=== PATIENT | female | born 1970 | race African-American/Black ===

== ENCOUNTER 2016-10-21 12:51 | Emergency (ER) | payer SELFPAY ==
[~2016-10-21] VITALS: Ht 177.8 cm; Wt 94.3 kg
[~2016-10-21 12:51] MED LIST: ALBU0.63 IH; ALBU5SOL2 IH; ALBU8.5H6 IH; ALPR0.254 PO; COMBIVENT IH; FLUT50DI IH; HYDR-2666 PO; HYDR-2762 PO; HYDR-971 PO; METO25TA9 PO; NITR100C62 PO; OXYC-323 PO; PARO10TA2 PO; SULF1TAB24 PO
[2016-10-21] MEDS ORDERED: IPRATRPIUM/ALBUTEROL 0.5/2.5MG 3 ML NEBU. NEB ONE (14:00)
[2016-10-21 14:30] VITALS: BP 114/69
[2016-10-21] MEDS ORDERED: IPRA4AER IH (14:43)
[2016-10-21] MEDS ORDERED: FLUT100D IH (14:43)
--- NOTE | 2016-10-21 14:44 | PHYS DOC ---
Past Medical History Past Medical History: Asthma, Bronchitis, Cancer, Diabetes-Type II, Hypertension, Kidney Stone, Other Additional Past Medical Histor: SVT, Cardioversion x 2,Cervical CA. Past Surgical History: Hysterectomy, Tubal ligation, Other Additional Past Surgical Histo: Kidney stent placed&removed,Cervical cyrotherapy Alcohol Use: Occasionally Drug Use: None Adult General Chief Complaint Chief Complaint: SHORTNESS OF BREATH HPI HPI Patient is a 46 year old female who presents to the ED with the complaint of shortness of air and chest tightness. The patient was seen 4 days ago at [facility] with these complaints as well as a fever and was diagnosed with "walking pneumonia" and was put on Levaquin which she has been taking as prescribed. However she also has run out of her Flovent and Combivent inhalers and believes that her symptoms today are because she has not had her inhalers in 2 weeks. She does have a history of asthma. She is a smoker. Patient moved here recently from [place] and ended up coming here without her inhalers. PCP none locally Review of Systems Review of Systems Constitutional: She has had fevers for several days Eyes: Denies change in visual acuity, redness, or eye pain [] HENT: Denies nasal congestion or sore throat [] Respiratory: Complains of cough and shortness of air as in history of present illness Cardiovascular: No cardiac sounding chest pain GI: Denies abdominal pain, nausea, vomiting, bloody stools or diarrhea [] : Denies dysuria or hematuria [] Musculoskeletal: Denies back pain or joint pain [] Integument: Denies rash or skin lesions [] Neurologic: Denies headache, focal weakness or sensory changes [] Current Medications Current Medications Current Medications Medications (Trade) Dose Ordered Sig/Laila Start Time Stop Time Status Last Admin Dose Admin Albuterol/ Ipratropium (Duoneb) 3 ml 1X ONCE 10/21/16 14:00 10/21/16 14:01 DC 10/21/16 14:14 3 ML Allergies Allergies Allergies Coded Allergies Type Severity Reaction Last Updated Verified No Known Drug Allergies 05/30/15 No Physical Exam Physical Exam Constitutional: Well developed, well nourished, no acute distress, non-toxic appearance. Alert, mentating normally, able to speak in full sentences without difficulty, ambulatory without dyspnea, pulse ox on room air 100%. HENT: Normocephalic, atraumatic, bilateral external ears normal, nose normal. [ ] Eyes: conjunctiva normal, no discharge. [] Neck: Normal range of motion, no stridor. [] Cardiovascular:Heart rate regular rhythm, no murmur , nontachycardia Lungs & Thorax: Bilateral breath sounds clear to auscultation with no wheezes, good bilateral equal breath sounds present, no prolonged expiratory phase Abdomen: Bowel sounds normal, soft, no tenderness, no masses, no pulsatile masses. [] Skin: Warm, dry, no erythema, no rash. [] Extremities: No tenderness, no cyanosis, no clubbing, ROM intact, no edema. [] Neurologic: Alert and oriented X 3, normal motor function, normal sensory function, no focal deficits noted. [] Current Patient Data Vital Signs Vital Signs Date Time Temp Pulse Resp B/P Pulse Ox O2 Delivery O2 Flow Rate FiO2 10/21/16 14:30 84 20 114/69 98 Room Air 10/21/16 13:00 98.5 98.5 EKG EKG [] Radiology/Procedures Radiology/Procedures [] Course & Med Decision Making Course & Med Decision Making Pertinent Labs and Imaging studies reviewed. (See chart for details) 46-year-old female with history of asthma who was diagnosed with pneumonia a few days ago at an area hospital and was started on an appropriate antibiotic, continues to have symptoms although today her vital signs and pulse ox are normal and lungs are clear. She does state a history of asthma so I offered her a DuoNeb which she stated made her feel better and I gave her prescriptions for the chronic inhalers that she is supposed to be taking and urged her to follow up with primary care. [] Dragon Disclaimer Dragon Disclaimer This electronic medical record was generated, in whole or in part, using a voice recognition dictation system. Departure Departure Impression: Primary Impression: Asthma exacerbation Disposition: 01 HOME, SELF-CARE Condition: IMPROVED Referrals: Elvin FRIEDMAN MD (PCP) Patient Instructions: Asthma, Adult, [id number] Scripts Fluticasone Propionate (Flovent 100MCG Diskus)100 Mcg Disk.w.dev1 Puff IH BID # 1 INHALER Ref 5 Prov:FIONA SANDOVAL MD 10/21/16 Ipratropium/Albuterol Sulfate (Combivent Respimat Inhal)4 Gm Aer.w.adap2 Inh IH QID #1 INHALER Prov:FIONA SANDOVAL MD 10/21/16 FIONA SANDOVAL MD Oct 21, 2016 14:43
== END 2016-10-21 14:50 | disposition home or self-care (01) ==
LOC: ER 12:51
DX: J45.901 Unspecified asthma with (acute) exacerbation (principal); I10 Essential (primary) hypertension; E11.9 Type 2 diabetes mellitus without complications; Z87.442 Personal history of urinary calculi; Z85.89 Personal history of malignant neoplasm of other organs and systems; Z98.51 Tubal ligation status
CPT/HCPCS: 94250; 94640; 99283; J7620

== ENCOUNTER 2016-10-25 15:44 | Emergency (ER) | payer OTHER ==
[~2016-10-25] VITALS: Ht 177.8 cm; Wt 95.3 kg
[~2016-10-25 15:44] MED LIST changes: +FLUT100D IH; +IPRA4AER IH; -PARO10TA2 PO; +PARO10TA3 PO
[2016-10-25] MEDS ORDERED: IPRATRPIUM/ALBUTEROL 0.5/2.5MG 3 ML NEBU. NEB ONE (16:15)
[2016-10-25 16:16] LABS: BASO # 0.1 x10^3/uL (0.0-0.2); BASO % 1 % (0-3); EOS % 3 % (0-3); HEMATOCRIT 40.5 % (36.0-47.0); HEMOGLOBIN 13.4 g/dL (12.0-15.5); LYMPH # 4.5 x10^3/uL (1.0-4.8); LYMPH % 44 % (24-48); MEAN CORPUSCULAR HEMOGLOBIN 30 pg (25-35); MEAN CORPUSCULAR HGB CONC 33 g/dL (31-37); MEAN CORPUSCULAR VOLUME 92 fL (79-100); MONO % 5 % (0-9); NEUT % 46 % (31-73); PLATELET COUNT 254 x10^3/uL (140-400); RED CELL DISTRIBUTION WIDTH 14.1 % (11.5-14.5); WHITE BLOOD COUNT 10.3 x10^3/uL (4.0-11.0)
[2016-10-25 16:34] LABS: CALCIUM 9.2 mg/dL (8.5-10.1); CREATININE 0.8 mg/dL (0.6-1.0); GFR 93.9; POTASSIUM 3.9 mmol/L (3.5-5.1)
[2016-10-25 16:38] LABS: ALBUMIN 3.5 g/dL (3.4-5.0); DIRECT BILIRUBIN 0.1 mg/dL (0.0-0.2); TOTAL BILIRUBIN 0.4 mg/dL (0.2-1.0); TOTAL PROTEIN 7.3 g/dL (6.4-8.2)
--- NOTE | 2016-10-25 16:57 | EKG ---
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
--- NOTE | 2016-10-25 17:08 | RAD ---
Examination: Single portable chest History: History of chest pain Comparison: 12/15/2015 Findings: The cardiomediastinal silhouette grossly appears unremarkable. There is no acute infiltrate or visualized pneumothorax identified. Impression: No acute cardiopulmonary findings.
--- NOTE | 2016-10-25 17:11 | PHYS DOC ---
Past Medical History Past Medical History: Asthma, Bronchitis, Cancer, Diabetes-Type II, Hypertension, Kidney Stone, Other Additional Past Medical Histor: SVT, Cardioversion x 2,Cervical CA. Past Surgical History: Hysterectomy, Tubal ligation, Other Additional Past Surgical Histo: Kidney stent placed&removed,Cervical cyrotherapy Alcohol Use: Occasionally Drug Use: None Adult General Chief Complaint Chief Complaint: SHORTNESS OF BREATH HPI HPI 46-year-old female presenting to the emergency department today with cough shortness of breath with exertion. This is been present for greater than one half weeks. She reports being seen at [facility] treated for a pneumonia with a fluoroquinolone. She was also seen here given DuoNeb therapy and subsequently discharged home. She reports shortness of breath that is worse with walking. She reports a dry cough without much mucus production. She has a history of asthma. She has been using her albuterol intermittently which has helped mildly. She denies any leg swelling bilaterally. She denies weight gain. She denies having fevers. She finished her antibiotic course as prescribed. She also reports mild swelling of her right knee. Review of systems is negative for chest pain abdominal pain nausea vomiting diaphoresis. All other review of systems is negative unless otherwise noted in history of present illness. Review of Systems Review of Systems SEE ABOVE. Current Medications Current Medications Current Medications Medications (Trade) Dose Ordered Sig/Laila Start Time Stop Time Status Last Admin Dose Admin Albuterol/ Ipratropium (Duoneb) 3 ml 1X ONCE 10/25/16 16:15 10/25/16 16:16 DC 10/25/16 16:24 3 ML Info (Do NOT chart on this entry -- for MONITORING) 1 each PRN DAILY PRN 10/25/16 17:45 10/27/16 17:44 Iohexol (Omnipaque 300 Mg/ml) 75 ml 1X ONCE 10/25/16 18:00 10/25/16 18:01 DC 10/25/16 18:10 75 ML Allergies Allergies Allergies Coded Allergies Type Severity Reaction Last Updated Verified No Known Drug Allergies 05/30/15 No Physical Exam Physical Exam Constitutional: Well developed, well nourished, no acute distress, non-toxic appearance. HENT: Normocephalic, atraumatic, bilateral external ears normal, oropharynx moist, no oral exudates, nose normal. [] Eyes: PERRLA, EOMI, conjunctiva normal, no discharge. Neck: Normal range of motion, no tenderness, supple, no stridor. No evidence of JVD. Cardiovascular:Heart rate regular rhythm, no murmur Lungs & Thorax: Bilateral breath sounds clear to auscultation . No wheezing on auscultation. Expiratory phase is normal. No crackles present. Abdomen: Bowel sounds normal, soft, no tenderness, no masses, no pulsatile masses. Skin: Warm, dry, no erythema, no rash. [] Back: No tenderness, no CVA tenderness. Extremities: No tenderness, no cyanosis, no clubbing, ROM intact, no edema present. Legs are symmetric without unilateral swelling. Nontender venous system. No clinical evidence of DVT present. Neurologic: Alert and oriented X 3, normal motor function, normal sensory function, no focal deficits noted. Psychologic: Affect normal, judgement normal, mood normal. Current Patient Data Vital Signs Vital Signs Date Time Temp Pulse Resp B/P Pulse Ox O2 Delivery O2 Flow Rate FiO2 10/25/16 16:24 99 Room Air 10/25/16 16:01 99.3 94 16 113/74 99.3 Lab Values Laboratory Tests Test 10/25/16 16:00 White Blood Count 10.3x10^3/uL (4.0-11.0) Red Blood Count 4.40x10^6/uL (3.50-5.40) Hemoglobin 13.4g/dL (12.0-15.5) Hematocrit 40.5% (36.0-47.0) Mean Corpuscular Volume 92fL (79-100) Mean Corpuscular Hemoglobin 30pg (25-35) Mean Corpuscular Hemoglobin Concent 33g/dL (31-37) Red Cell Distribution Width 14.1% (11.5-14.5) Platelet Count 254x10^3/uL (140-400) Neutrophils (%) (Auto) 46% (31-73) Lymphocytes (%) (Auto) 44% (24-48) Monocytes (%) (Auto) 5% (0-9) Eosinophils (%) (Auto) 3% (0-3) Basophils (%) (Auto) 1% (0-3) Neutrophils # (Auto) 4.8x10^3uL (1.8-7.7) Lymphocytes # (Auto) 4.5x10^3/uL (1.0-4.8) Monocytes # (Auto) 0.5x10^3/uL (0.0-1.1) Eosinophils # (Auto) 0.3x10^3/uL (0.0-0.7) Basophils # (Auto) 0.1x10^3/uL (0.0-0.2) Sodium Level 146mmol/L (136-145) H Potassium Level 3.9mmol/L (3.5-5.1) Chloride Level 107mmol/L (98-107) Carbon Dioxide Level 30mmol/L (21-32) Anion Gap 9 (6-14) Blood Urea Nitrogen 10mg/dL (7-20) Creatinine 0.8mg/dL (0.6-1.0) Estimated GFR (Cockcroft-Gault) 93.9 Glucose Level 112mg/dL (70-99) H Calcium Level 9.2mg/dL (8.5-10.1) Total Bilirubin 0.4mg/dL (0.2-1.0) Direct Bilirubin 0.1mg/dL (0.0-0.2) Aspartate Amino Transferase (AST) 11U/L (15-37) L Alanine Aminotransferase (ALT) 14U/L (14-59) Alkaline Phosphatase 115U/L (46-116) Troponin I Quantitative < 0.017ng/mL (0.000-0.055) QI-Uiu-O-Type Natriuretic Peptide 10pg/mL (0-124) Total Protein 7.3g/dL (6.4-8.2) Albumin 3.5g/dL (3.4-5.0) Lipase 155U/L (73-393) Laboratory Tests 10/25/16 16:00 Laboratory Tests 10/25/16 16:00 EKG EKG EKG shows sinus rhythm with regular rate. Normal intervals. Normal axis. ST segments are congruent. Not suggestive of ACS. Reviewed by myself. Radiology/Procedures Radiology/Procedures Chest x-ray reviewed by myself shows no obvious infiltrate or pneumothorax present. No obvious acute cardiopulmonary process present. Course & Med Decision Making Course & Med Decision Making Pertinent Labs and Imaging studies reviewed. (See chart for details) [] 46-year-old female presenting to the emergency department with shortness of breath. Vital signs afebrile normal heart rate. Unremarkable. Physical exam showed normal lung sounds. Patient was not dyspneic. She was able to walk in our emergency department without any difficulty. No evidence of cyanosis present. EKG not suggestive of ischemia. Chest x-ray unremarkable. Blood work normal CBC. Chemistry panel unremarkable. Troponin negative. Patient was given a DuoNeb therapy. CT angiography negative for pulmonary embolism. The patient was subsequent discharged home to follow up with her primary care physician in 2 days if her symptoms do not improve. I also recommended she be referred to our pulmonologists within the next week. Dragon Disclaimer Dragon Disclaimer This electronic medical record was generated, in whole or in part, using a voice recognition dictation system. Departure Departure Impression: Primary Impression: Shortness of breath Disposition: 01 HOME, SELF-CARE Condition: STABLE Referrals: Elvin FRIEDMAN MD (PCP) JOSE ALEJANDRO HUITRON MD cardiology SHERRY GARCIA MD pulmonology Patient Instructions: Shortness of Breath Additional Instructions: Thank you for allowing us to participate in your care today. Followup with your primary care physician in 3 days if your symptoms do not improve. If you do not have a primary care provider you can ask for a list of our primary care providers. I recommend you follow up with our application helper Dr. Garcia within 7 days. Return to the emergency department you have any new or concerning findings. This should be evaluated by the primary care physician and any necessary consulting services for continued management within a few days after discharge. Return to emergency room if you have any new or concerning symptoms including but not limited to fever, chills, nausea, vomiting, intractable pain, any new rashes, chest pain, shortness of air, uncontrolled bleeding, difficulty breathing, and/or vision loss. You may have been prescribed medication that can change in your level of thinking and ability to operate machinery. These medications include hydrocodone and Ativan. Also, Benadryl has been known to do this as well. Be sure to check with your pharmacist and ask if the medications you've prescribed can affect your level of consciousness. I recommend not operating heavy machinery or driving while on medication such as these. Scripts Albuterol Sulfate (Proair Hfa Inhaler)8.5 Gm Hfa.aer.ad1 Puff INH PRN Q6HRS PRN SHORTNESS OF BREATH #1 INHALER Prov:GREGG CODY MD 10/25/16 GREGG CODY MD Oct 25, 2016 17:11
[2016-10-25] MEDS ORDERED: CONTRAST GIVEN MC PRN (17:45)
[2016-10-25 18:00] VITALS: BP 109/66
[2016-10-25] MEDS ORDERED: IOHEXOL 300 MG/ML 75 ML VIAL IV ONE (18:00)
--- NOTE | 2016-10-25 18:26 | RAD ---
CTA chest: Indication: Exertional dyspnea. Axial imaging through the chest was performed after the administration of intravenous contrast and utilizing the CT angiography protocol. Multiplanar, 3D and MIP reformations were also performed. Evaluation of the pulmonary arterial system is without evidence of thromboembolism. No filling defects are detected. The thoracic aorta is normal caliber. No dissection is seen. No pericardial or pleural fluid is identified. No pulmonary infiltrates, nodules or masses are detected. The upper abdomen is unremarkable. Impression: Unremarkable CT angiogram of the chest. Electronically signed by: Marco Harley MD (Oct 25, 2016 18:25:45)
[2016-10-25] MEDS ORDERED: PROAIR HFA8.5 GM INH (18:31)
== END 2016-10-25 18:40 | disposition home or self-care (01) ==
LOC: ER 15:44
DX: R06.02 Shortness of breath (principal); R05 Cough; J45.909 Unspecified asthma, uncomplicated; E11.9 Type 2 diabetes mellitus without complications; I10 Essential (primary) hypertension; I47.1 Supraventricular tachycardia; Z79.899 Other long term (current) drug therapy
CPT/HCPCS: 36415; 71010; 71275; 80048; 80076; 83690; 83880; 84484; 85027; 93005; 94640; 99285; J7620; Q9967

== ENCOUNTER → 2016-12-30 | Outpatient (CLI) | payer OTHER ==
[~2016-12-30] MED LIST changes: +PROAIR HFA8.5 GM INH
--- NOTE | 2016-12-30 08:57 | RAD ---
Indication: Left elbow pain, fall. Time of exam 0851 hours. 3 views of the left elbow were obtained. The alignment is normal. The joint spaces are well-maintained. No fracture, dislocation or effusion is identified. Impression: No acute bony abnormality is detected.
== END | disposition home or self-care (01) ==
LOC: RAD 08:37
PROVIDERS: ATTEND Family Medicine
DX: M25.522 Pain in left elbow (principal)
CPT/HCPCS: 73080

== ENCOUNTER 2016-12-31 12:00 | Emergency (ER) | payer OTHER ==
[~2016-12-31] VITALS: Ht 175.3 cm; Wt 98.0 kg
[2016-12-31 12:05] VITALS: BP 141/67
--- NOTE | 2016-12-31 12:43 | RAD ---
Indication: Trauma, fall with right knee pain. Time of exam 12:30 PM 4 views of the right knee were obtained. The alignment is normal. The joint spaces are well maintained. The articular surfaces are smooth. No fracture, dislocation or effusion is identified. Impression: No acute bony abnormality is detected.
[2016-12-31] MEDS ORDERED: HYDROcodone/APAP 5/325MG 1 TAB TABLET PO ONE (13:00)
[2016-12-31] MEDS ORDERED: HYDR-971 PO (13:01)
--- NOTE | 2016-12-31 13:01 | PHYS DOC ---
Past Medical History Past Medical History: Asthma, Diabetes-Type II, Hypertension Additional Past Medical Histor: SVT Past Surgical History: Hysterectomy, Tubal ligation Additional Past Surgical Histo: kideny stent placed and removed, cryotherapy Alcohol Use: Occasionally Drug Use: None Adult General Chief Complaint Chief Complaint: KNEE INJURY HPI HPI Patient is a 46 year old female with history of asthma, hypertension, diabetes type 2, who presents today with mild anterior right knee pain and swelling that began on December 20, 2016 after she fell. Patient denies any loss of consciousness when she fell. She states she followed up her primary care doctor Dr. Etienne who removed some fluid from the knee and gave her an injection in the knee for pain. Patient states this has not alleviated her pain. She states she still has pain especially when she has to bend her knee. Patient denies any loss of consciousness when she fell. PCP Dr. Etienne Review of Systems Review of Systems Constitutional: Denies fever or chills [] Eyes: Denies change in visual acuity, redness, or eye pain [] Musculoskeletal: Right knee pain Integument: Denies rash or skin lesions [] Neurologic: Denies headache, focal weakness or sensory changes [] Endocrine: Denies polyuria or polydipsia [] Current Medications Current Medications Current Medications Medications (Trade) Dose Ordered Sig/Laila Start Time Stop Time Status Last Admin Dose Admin Acetaminophen/ Hydrocodone Bitart (Lortab 5/325) 2 tab 1X ONCE 12/31/16 13:00 12/31/16 13:01 12/31/16 12:26 2 TAB Allergies Allergies Allergies Coded Allergies Type Severity Reaction Last Updated Verified No Known Drug Allergies 05/30/15 No Physical Exam Physical Exam Constitutional: Well developed, well nourished, no acute distress, non-toxic appearance. [] HENT: Normocephalic, atraumatic, bilateral external ears normal, oropharynx moist, no oral exudates, nose normal. [] Eyes: PERRLA, EOMI, conjunctiva normal, no discharge. [] Skin: Warm, dry, no erythema, no rash. [] Back: No tenderness, no CVA tenderness. [] Extremities: Right anterior knee with mild amount of soft tissue swelling. No obvious deformity. Tenderness diffusely on the anterior aspect of the right knee. Limited range of motion to the right knee especially flexion due to pain. Negative Dashawn sign. +2 right pedal pulse. Cap refill less than 2 seconds the right lower extremity. Sensation intact to the right lower extremity. Neurologic: Alert and oriented X 3, normal motor function, normal sensory function, no focal deficits noted. [] Psychologic: Affect normal, judgement normal, mood normal. [] Current Patient Data Vital Signs Vital Signs Date Time Temp Pulse Resp B/P (MAP) Pulse Ox O2 Delivery O2 Flow Rate FiO2 12/31/16 12:26 16 Room Air 12/31/16 12:05 98.8 82 141/67 (91) 100 98.8 EKG EKG [] Radiology/Procedures Radiology/Procedures []PROCEDURE: KNEE RIGHT 4V Indication: Trauma, fall with right knee pain. Time of exam 12:30 PM 4 views of the right knee were obtained. The alignment is normal. The joint spaces are well maintained. The articular surfaces are smooth. No fracture, dislocation or effusion is identified. Impression: No acute bony abnormality is detected. DICTATED and SIGNED BY: MARYELLEN STEWART MD DATE: 12/31/16 1240 CC: ADONAY FRIEDMAN MD; CHIHCI ASCENCIO APRN; NON,STAFF ~ Course & Med Decision Making Course & Med Decision Making Pertinent Labs and Imaging studies reviewed. (See chart for details) Patient is in the ED with right knee pain that began on December 03, 2016 after she fell. Right knee x-rays interpreted by radiologist are negative for any acute findings. Immobilizer applied to the right knee by the instrument room technician, neurovascular exam done by me is normal, cap refill less than 2 seconds. Ice elevation encouraged. Provided orthopedic doctor for follow-up in one week. Dragon Disclaimer Dragon Disclaimer This electronic medical record was generated, in whole or in part, using a voice recognition dictation system. Departure Departure Impression: Primary Impression: Right knee sprain Additional Impression: Fall from standing Disposition: 01 HOME, SELF-CARE Condition: STABLE Referrals: ADONAY FRIEDMAN MD (PCP) AMADEO CRUZ MD Follow-up in one week Patient Instructions: Fall Prevention and Home Safety, Knee Sprain Additional Instructions: You were seen for ongoing right knee pain. Your x-rays of the knee are negative for any acute findings. Wear the immobilizer as tolerated. Ice and elevate the extremity. Take the prescribed pain medicines including ibuprofen as needed for pain. Follow-up with the provided orthopedic doctor in one week if pain continues. Scripts Hydrocodone/Apap 5-325 (NORCO 5-325 TABLET) 1 Each Tablet 1-2 TAB PO Q4-6HRS, #20 TAB Prov: CHICHI ASCENCIO APRN 12/31/16 Problem Qualifiers Primary Impression: Right knee sprain Encounter type: initial encounter Involved ligament of knee: unspecified ligament Qualified Codes: S83.91XA - Sprain of unspecified site of right knee , initial encounter Additional Impression: Fall from standing Encounter type: initial encounter Qualified Codes: W19.XXXA - Unspecified fall, initial encounter CHICHI ASCENCIO APRN December 31, 2016 13:01
== END 2016-12-31 13:16 | disposition home or self-care (01) ==
LOC: ER 12:00
DX: S83.91XA Sprain of unspecified site of right knee, initial encounter (principal); J45.909 Unspecified asthma, uncomplicated; E11.9 Type 2 diabetes mellitus without complications; I10 Essential (primary) hypertension; W19.XXXA Unspecified fall, initial encounter; Y93.89 Activity, other specified; Y92.89 Other specified places as the place of occurrence of the external cause; Y99.8 Other external cause status
CPT/HCPCS: 29505; 73564; 99284-25

== ENCOUNTER 2017-02-16 20:20 | Emergency (ER) | payer OTHER ==
[~2017-02-16] VITALS: Ht 175.3 cm; Wt 95.3 kg
[~2017-02-16 20:20] MED LIST changes: -HYDR-2666 PO; +HYDR-2758 PO
[2017-02-16 20:30] VITALS: BP 115/74
[2017-02-16 21:25] LABS: BASO # 0.1 x10^3/uL (0.0-0.2); BASO % 1 % (0-3); EOS % 2 % (0-3); HEMATOCRIT 40.6 % (36.0-47.0); HEMOGLOBIN 13.4 g/dL (12.0-15.5); LYMPH # 2.5 x10^3/uL (1.0-4.8); LYMPH % 22 % (24-48); MEAN CORPUSCULAR HEMOGLOBIN 31 pg (25-35); MEAN CORPUSCULAR HGB CONC 33 g/dL (31-37); MEAN CORPUSCULAR VOLUME 92 fL (79-100); MONO % 6 % (0-9); NEUT % 70 % (31-73); PLATELET COUNT 207 x10^3/uL (140-400); RED BLOOD COUNT 4.39 x10^6/uL (3.50-5.40); RED CELL DISTRIBUTION WIDTH 14.8 % (11.5-14.5); WHITE BLOOD COUNT 11.4 x10^3/uL (4.0-11.0)
[2017-02-16] MEDS ORDERED: IPRATRPIUM/ALBUTEROL 0.5/2.5MG 3 ML NEBU. NEB ONE (21:30)
[2017-02-16 21:34] LABS: CALCIUM 8.3 mg/dL (8.5-10.1); CREATININE 0.9 mg/dL (0.6-1.0); GFR 81.9; POTASSIUM 3.7 mmol/L (3.5-5.1)
--- NOTE | 2017-02-16 21:43 | PHYS DOC ---
Past Medical History Past Medical History: Asthma, Diabetes-Type II, Hypertension, Other Additional Past Medical Histor: SVT Past Surgical History: Hysterectomy, Tubal ligation, Other Additional Past Surgical Histo: kideny stent placed & removed, cryotherapy, CARDIOVERSION Additional Information: 03 PPD Alcohol Use: Occasionally Drug Use: None Adult General Chief Complaint Chief Complaint: COUGH HPI HPI 46-year-old female presenting to the emergency department with cough for the past week. Her cough is nonproductive. She has mild pain with coughing in her ribs. She also reports being short of breath intermittently over the past few days. She had been prescribed antibiotics and steroids which she reports only minimally relieved her symptoms. No exacerbating factors. Nonradiating. Review of systems is negative for fevers chills nausea vomiting diaphoresis numbness weakness or tingling. All other review of systems is negative unless otherwise noted in history of present illness. ED course: 46-year-old female presenting to the emergency department today with upper respiratory tract infection symptoms. X-ray and blood work obtained. Chest x-ray reviewed by myself shows no obvious infiltrate or pneumothorax present. No obvious acute cardiopulmonary process present. EKG shows sinus rhythm with regular rate. Normal intervals. Normal axis. ST segments are congruent. Not suggestive of ACS. Reviewed by myself. Afebrile normal heart rate. Satting well on room air. Pertinent physical exam findings showed clear to auscultation bilaterally. No wheezing present. The patient was given a nebulizer treatment in the emergency department for symptomatic treatment. Leukocytosis was likely secondary to the patient being on prednisone previously. She was subsequently discharged home to follow-up with her primary care physician. The patient was then discharged home in stable condition to follow up with their primary care physician over the next 2-3 days. They were to return if their symptoms worsened or if they were concerned for any reason. [id number] discharge instructions and return precautions were given. Patient' s questions were answered to their satisfaction. Patient is comfortable plan. Review of Systems Review of Systems SEE ABOVE. Current Medications Current Medications Current Medications Medications (Trade) Dose Ordered Sig/Laila Start Time Stop Time Status Last Admin Dose Admin Albuterol/ Ipratropium (Duoneb) 3 ml 1X ONCE 02/16/17 21:30 02/16/17 21:31 DC 02/16/17 21:19 3 ML Allergies Allergies Allergies Coded Allergies Type Severity Reaction Last Updated Verified No Known Drug Allergies 05/30/15 No Physical Exam Physical Exam Constitutional: Well developed, well nourished, no acute distress, non-toxic appearance. [] HENT: Normocephalic, atraumatic, bilateral external ears normal, oropharynx moist, no oral exudates, nose normal. [] Eyes: PERRLA, EOMI, conjunctiva normal, no discharge. [] Neck: Normal range of motion, no tenderness, supple, no stridor. [] Cardiovascular:Heart rate regular rhythm, no murmur [] Lungs & Thorax: Bilateral breath sounds clear to auscultation [] Abdomen: Bowel sounds normal, soft, no tenderness, no masses, no pulsatile masses. [] Skin: Warm, dry, no erythema, no rash. [] Back: No tenderness, no CVA tenderness. [] Extremities: No tenderness, no cyanosis, no clubbing, ROM intact, no edema. [] Neurologic: Alert and oriented X 3, normal motor function, normal sensory function, no focal deficits noted. [] Psychologic: Affect normal, judgement normal, mood normal. [] Current Patient Data Vital Signs Vital Signs Date Time Temp Pulse Resp B/P (MAP) Pulse Ox O2 Delivery O2 Flow Rate FiO2 02/16/17 21:23 100 Room Air 02/16/17 20:30 98.5 95 16 115/74 (88) 98.5 Lab Values Laboratory Tests Test 02/16/17 21:19 White Blood Count 11.4 x10^3/uL (4.0-11.0) H Red Blood Count 4.39 x10^6/uL (3.50-5.40) Hemoglobin 13.4 g/dL (12.0-15.5) Hematocrit 40.6 % (36.0-47.0) Mean Corpuscular Volume 92 fL (79-100) Mean Corpuscular Hemoglobin 31 pg (25-35) Mean Corpuscular Hemoglobin Concent 33 g/dL (31-37) Red Cell Distribution Width 14.8 % (11.5-14.5) H Platelet Count 207 x10^3/uL (140-400) Neutrophils (%) (Auto) 70 % (31-73) Lymphocytes (%) (Auto) 22 % (24-48) L Monocytes (%) (Auto) 6 % (0-9) Eosinophils (%) (Auto) 2 % (0-3) Basophils (%) (Auto) 1 % (0-3) Neutrophils # (Auto) 8.0 x10^3uL (1.8-7.7) H Lymphocytes # (Auto) 2.5 x10^3/uL (1.0-4.8) Monocytes # (Auto) 0.6 x10^3/uL (0.0-1.1) Eosinophils # (Auto) 0.2 x10^3/uL (0.0-0.7) Basophils # (Auto) 0.1 x10^3/uL (0.0-0.2) Sodium Level 143 mmol/L (136-145) Potassium Level 3.7 mmol/L (3.5-5.1) Chloride Level 109 mmol/L (98-107) H Carbon Dioxide Level 27 mmol/L (21-32) Anion Gap 7 (6-14) Blood Urea Nitrogen 9 mg/dL (7-20) Creatinine 0.9 mg/dL (0.6-1.0) Estimated GFR (Cockcroft-Gault) 81.9 Glucose Level 155 mg/dL (70-99) H Calcium Level 8.3 mg/dL (8.5-10.1) L Troponin I Quantitative < 0.017 ng/mL (0.000-0.055) Laboratory Tests 02/16/17 21:19 Laboratory Tests 02/16/17 21:19 EKG EKG [] Radiology/Procedures Radiology/Procedures [] Course & Med Decision Making Course & Med Decision Making Pertinent Labs and Imaging studies reviewed. (See chart for details) [] Dragon Disclaimer Dragon Disclaimer This electronic medical record was generated, in whole or in part, using a voice recognition dictation system. Departure Departure Impression: Primary Impression: URI (upper respiratory infection) Additional Impression: Cough Disposition: 01 HOME, SELF-CARE Condition: STABLE Referrals: ADONAY FRIEDMAN MD (PCP) Patient Instructions: Cough, Adult Additional Instructions: Thank you for allowing us to participate in your care today. 1. Try to stay hydrated and drink lots of water 2. Take your Tessalon Perles and inhaler as needed to help with your cough. Followup with your primary care physician in 3 days if your symptoms do not improve. Call your Primary Doctor tomorrow and inform them of your visit today. If you do not have a primary care provider you can ask for a list of our primary care providers. Return to the emergency department you have any new or concerning findings. This should be evaluated by the primary care physician and any necessary consulting services for continued management within a few days after discharge. Return to emergency room if you have any new or concerning symptoms including but not limited to fever, chills, nausea, vomiting, intractable pain, any new rashes, chest pain, shortness of air, uncontrolled bleeding, difficulty breathing, and/or vision loss. Problem Qualifiers GREGG CODY MD Feb 16, 2017 21:43
--- NOTE | 2017-02-17 06:35 | EKG ---
[facility] [address] [place] [address] Test Date: 2017-02-16 Test Time: 20:43:30 Pat Name: CALIXTO DANIEL Department: Room: Gender: F Cbx Operator: : 1970 Requested By: GREGG CODY Order Number: [id number] Reading MD: Measurements Intervals [place] Rate: 77 P: 40 OK: 140 QRS: 62 QRSD: 80 T: 27 QT: 364 QTc: 414 Interpretive Statements SINUS RHYTHM NORMAL ECG RI6.01 No previous ECG available for comparison
--- NOTE | 2017-02-17 07:15 | RAD ---
Indication: Cough and shortness of breath. Time of exam 2113 hours. Correlation is made with prior study from 10/25/2016. FINDINGS: The heart size is normal. The lungs are clear. No pleural effusion or pneumothorax is identified. The pulmonary vascularity is normal. IMPRESSION: No acute abnormality detected.
== END 2017-02-16 22:16 | disposition home or self-care (01) ==
LOC: ER 20:20
DX: J06.9 Acute upper respiratory infection, unspecified (principal); J45.909 Unspecified asthma, uncomplicated; I10 Essential (primary) hypertension; E11.9 Type 2 diabetes mellitus without complications; F17.200 Nicotine dependence, unspecified, uncomplicated; Z90.710 Acquired absence of both cervix and uterus; Z98.51 Tubal ligation status
CPT/HCPCS: 36415; 71010; 80048; 84484; 85027; 93005; 94250; 94640; 99285; J7620

== ENCOUNTER 2017-06-08 09:17 | Emergency (ER) | payer OTHER ==
[~2017-06-08] VITALS: Ht 175.3 cm; Wt 95.3 kg
[~2017-06-08 09:17] MED LIST changes: +METO-239 PO; -METO25TA9 PO
--- NOTE | 2017-06-08 10:01 | PHYS DOC ---
Past Medical History Past Medical History: Asthma, Diabetes-Type II, Hypertension, Kidney Stone, Other Additional Past Medical Histor: SVT Past Surgical History: Hysterectomy, Tubal ligation, Other Additional Past Surgical Histo: kideny stent placed & removed, cryotherapy, CARDIOVERSION Additional Information: 0.5 PPD Alcohol Use: Occasionally Drug Use: None Adult General Chief Complaint Chief Complaint: COUGH HPI HPI Impression is a pleasant 46-year-old -[place] female with multiple medical problems who presents with a one-week history of progressive cough URI- like symptoms that she cannot seem to get over. She is attempted use over-the- counter medications to include Tamiflu and guaifenesin without much improvement. She has had subjective fevers and chills with a productive cough runny nose and congestion. She denies any myalgias, chest pain but also has some tightness across her chest with coughing. Patient denies any wheezing, history of asthma or COPD. 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 Denies any antibiotic use or travel outside the country. Patient denies any abdominal pain, nausea vomiting or diarrhea. Review of Systems Review of Systems Constitutional: Subjective fever or chills [] Eyes: Denies change in visual acuity, redness, or eye pain [] HENT: Denies nasal congestion or sore throat [] Respiratory: Present nonproductive sometimes productive cough or shortness of breath [] Cardiovascular: No additional information not addressed in HPI [] GI: Denies abdominal pain, nausea, vomiting, bloody stools or diarrhea [] : Denies dysuria or hematuria [] Musculoskeletal: Denies back pain or joint pain [] Integument: Denies rash or skin lesions [] Neurologic: Denies headache, focal weakness or sensory changes [] Endocrine: Denies polyuria or polydipsia [] Allergies Allergies Allergies Coded Allergies Type Severity Reaction Last Updated Verified No Known Drug Allergies 05/30/15 No Physical Exam Physical Exam Of the vital signs recorded on the chart within normal limits. Constitutional: Well developed, well nourished, no acute distress, non-toxic appearance. [] HENT: Normocephalic, atraumatic, bilateral external ears normal, oropharynx moist, no oral exudates, nose rhinorrhea[] Neck: Normal range of motion, no tenderness, supple, no stridor. [] Cardiovascular:Heart rate regular rhythm, no murmur [] Lungs & Thorax: Bilateral breath sounds clear to auscultation slight crackle at the right base [] Skin: Warm, dry, no erythema, no rash. [] Neurologic: Alert and oriented X 3, normal motor function, normal sensory function, no focal deficits noted. [] Psychologic: Affect normal, judgement normal, mood normal. [] Current Patient Data Vital Signs Vital Signs Date Time Temp Pulse Resp B/P (MAP) Pulse Ox O2 Delivery O2 Flow Rate FiO2 06/08/17 09:23 99.2 79 24 114/24 (54) 99 Room Air 99.2 EKG EKG [] Radiology/Procedures Radiology/Procedures [] Course & Med Decision Making Course & Med Decision Making Pertinent Labs and Imaging studies reviewed. (See chart for details) She presents with URI-like symptoms for the last week. sHe has subjective fevers and chills and a productive cough with sick contacts at work. Hers exam is relatively unremarkable today I will provide her course of azithromycin because the work and she is in there is smoking. [] Dragon Disclaimer Dragon Disclaimer This electronic medical record was generated, in whole or in part, using a voice recognition dictation system. Departure Departure Impression: Primary Impression: Bronchitis Disposition: 01 HOME, SELF-CARE Condition: IMPROVED Referrals: Elvin FRIEDMAN MD (PCP) Patient Instructions: Acute Bronchitis Additional Instructions: My discharge plan Follow up: In addition patient is asked to followup with their primary doctor, within a week for followup examination and to address patient's ongoing medical conditions. Patient is advised that in the Emergency Department primary complaints are addressed and only in light of known signs and symptoms. Patient should return immediately to the emergency department if new signs and symptoms develop or patient's condition worsens in any way. At time of discharge patient was in stable condition and had verbalized understanding of the discharge instructions. Scripts Hydrocodone Bit/Acetaminophen (HYDROCODONE-APAP 5-325 ) 1 Each Tablet 1-2 TAB PO PRN Q6HRS Y for PAIN for 5 Days, #10 TAB 0 Refills Prov: SHABBIR SARMIENTO MD 06/08/17 Guaifenesin/Dextromethorphan (MUCINEX DM ER 600-30 MG TABLET) 1 Each Tab.er.12h 1 TAB PO PRN Q12HRS, #20 TAB Prov: SHABBIR SARMIENTO MD 06/08/17 Azithromycin (AZITHROMYCIN TABLET) 250 Mg Tablet 250 MG PO DAILY Y for infection for 5 Days, #6 TAB 0 Refills Please take 2 tablets on day 1 then 1 tablet days 2 through 5. Prov: SHABBIR SARMIENTO MD 06/08/17 SHABBIR SARMIENTO MD Jun 08, 2017 10:01
[2017-06-08 10:13] VITALS: BP 136/83
[2017-06-08] MEDS ORDERED: HYDR-2758 PO (10:15)
[2017-06-08] MEDS ORDERED: GUAI-108 PO (10:15)
[2017-06-08] MEDS ORDERED: AZIT250T6 PO (10:15)
== END 2017-06-08 10:33 | disposition home or self-care (01) ==
LOC: ER 09:17
DX: J40 Bronchitis, not specified as acute or chronic (principal); J45.909 Unspecified asthma, uncomplicated; E11.9 Type 2 diabetes mellitus without complications; I10 Essential (primary) hypertension; F17.200 Nicotine dependence, unspecified, uncomplicated; Z87.442 Personal history of urinary calculi; Z96.0 Presence of urogenital implants
CPT/HCPCS: 99283

== ENCOUNTER → 2017-09-14 | Outpatient (CLI) | payer OTHER | END | disposition home or self-care (01) | LOC: KCIC 13:41 | DX: J18.9 Pneumonia, unspecified organism (principal) | CPT/HCPCS: 71046 ==

== ENCOUNTER 2018-07-21 08:03 | Emergency (ER) | payer OTHER ==
[~2018-07-21] VITALS: Ht 175.3 cm; Wt 92.1 kg
[~2018-07-21 08:03] MED LIST changes: +AZIT250T6 PO; +GUAI-108 PO; -HYDR-2758 PO; +HYDR-2761 PO; -HYDR-2762 PO; +HYDR-2765 PO; +HYDR-3164 PO; -HYDR-971 PO; -OXYC-323 PO; +OXYC1TAB15 PO
--- NOTE | 2018-07-21 08:41 | PHYS DOC ---
Past Medical History Past Medical History: Asthma, Diabetes-Type II, Hypertension, Kidney Stone, Other Additional Past Medical Histor: SVT Past Surgical History: Hysterectomy, Tubal ligation, Other Additional Past Surgical Histo: kideny stent placed & removed, cryotherapy, CARDIOVERSION Alcohol Use: Occasionally Drug Use: None Adult General Chief Complaint Chief Complaint: COUGH HPI HPI 48-year-old female presents to ER via POV for complaints of 4 day history of productive cough and generalized fatigue. Patient reports she has had chest pain which worsens during coughing episodes which radiates into her back. Patient reports she feels like she has had a fever as she has had chills and sweats but has not checked her temperature at home. Patient reports she has had productive cough with green and yellow phlegm. Patient denies swelling in extremities, abdominal pain, or N/V/D. she reports she has had decreased appetite and fluid intake. She reports she's had decreased urination denying any dysuria. States history of asthma and is a daily smoker. Patient states she has been using her nebulizer however symptoms have still gradually worsened over the past few days. Patient reports she has been using [id number] TheraFlu denies any medications today. Review of Systems Review of Systems Constitutional: Reports chills and sweats- has not checked temp. at home. Reports generalized fatigue Eyes: Denies change in visual acuity, redness, or eye pain [] HENT: Denies nasal congestion or sore throat [] Respiratory: Reports productive cough with green and yellow phlegm. Reports exertional shortness of air Cardiovascular: Reports mid chest pain which worsens with coughing episodes GI: Denies abdominal pain, nausea, vomiting, bloody stools or diarrhea [] : Denies dysuria or hematuria. Reports decreased urination Musculoskeletal: Denies joint pain. Reports mid back pain. Denies calf pain or swelling Integument: Denies rash, swelling or skin lesions [] Neurologic: Denies headache, focal weakness or sensory changes [] All other systems were reviewed and found to be within normal limits, except as documented in this note. Current Medications Current Medications Current Medications Medications (Trade) Dose Ordered Sig/Laila Start Time Stop Time Status Last Admin Dose Admin Albuterol/ Ipratropium (Duoneb) 3 ml 1X ONCE 07/21/18 08:45 11/29/18 08:46 DC 07/21/18 08:53 3 ML Fentanyl Citrate (Fentanyl 2ml Vial) 50 mcg 1X ONCE 07/21/18 08:45 07/21/18 08:46 DC 07/21/18 09:11 50 MCG Methylprednisolone Sodium Succinate (SOLU-Medrol 125MG VIAL) 125 mg 1X ONCE 07/21/18 08:45 07/21/18 08:46 DC 07/21/18 09:10 125 MG Sodium Chloride 1,000 ml @ 1,000 mls/hr 1X ONCE 07/21/18 08:45 07/21/18 09:44 DC 07/21/18 09:10 1,000 MLS/HR Allergies Allergies Allergies Coded Allergies Type Severity Reaction Last Updated Verified No Known Drug Allergies 05/30/15 No Physical Exam Physical Exam Constitutional: Well developed, well nourished, no acute distress, non-toxic appearance. Fatigued appearance. Clear speech no muffled voice HENT: Normocephalic, atraumatic, bilateral ears normal, mucous membranes pink and dry, no oral exudates, nose normal. [] Eyes: Pupils equal, conjunctiva normal, no discharge. [] Neck: Normal range of motion, no tenderness, supple, no stridor. No gross adenopathy Cardiovascular: Heart rate regular rhythm, no murmur [] Lungs & Thorax: Bilateral breath sounds clear to auscultation- diminished in bases. Resp. slightly labored during exam with prod. cough- yellow sputum Abdomen: Bowel sounds normal, soft-nondistended with no rigidity, no tenderness , no masses, no pulsatile masses. [] Skin: Warm, dry, no erythema, no rash. [] Back: No tenderness, no CVA tenderness. [] Extremities: No tenderness, no cyanosis, no clubbing, ROM intact, no edema. [] Neurologic: Alert and oriented X 3, normal motor function, normal sensory function, no focal deficits noted. [] Psychologic: Affect normal, judgement normal, mood normal. [] Current Patient Data Vital Signs Vital Signs Date Time Temp Pulse Resp B/P (MAP) Pulse Ox O2 Delivery O2 Flow Rate FiO2 07/21/18 10:10 76 18 125/82 (96) 97 Room Air 07/21/18 08:30 99.0 99.0 Lab Values Laboratory Tests Test 07/21/18 08:45 07/21/18 09:00 07/21/18 09:40 White Blood Count 7.8 x10^3/uL (4.0-11.0) Red Blood Count 4.35 x10^6/uL (3.50-5.40) Hemoglobin 13.9 g/dL (12.0-15.5) Hematocrit 40.2 % (36.0-47.0) Mean Corpuscular Volume 92 fL (79-100) Mean Corpuscular Hemoglobin 32 pg (25-35) Mean Corpuscular Hemoglobin Concent 35 g/dL (31-37) Red Cell Distribution Width 13.9 % (11.5-14.5) Platelet Count 206 x10^3/uL (140-400) Neutrophils (%) (Auto) 60 % (31-73) Lymphocytes (%) (Auto) 30 % (24-48) Monocytes (%) (Auto) 6 % (0-9) Eosinophils (%) (Auto) 4 % (0-3) H Basophils (%) (Auto) 1 % (0-3) Neutrophils # (Auto) 4.7 x10^3uL (1.8-7.7) Lymphocytes # (Auto) 2.3 x10^3/uL (1.0-4.8) Monocytes # (Auto) 0.5 x10^3/uL (0.0-1.1) Eosinophils # (Auto) 0.3 x10^3/uL (0.0-0.7) Basophils # (Auto) 0.1 x10^3/uL (0.0-0.2) Sodium Level 142 mmol/L (136-145) Potassium Level 3.9 mmol/L (3.5-5.1) Chloride Level 105 mmol/L (98-107) Carbon Dioxide Level 26 mmol/L (21-32) Anion Gap 11 (6-14) Blood Urea Nitrogen 13 mg/dL (7-20) Creatinine 0.7 mg/dL (0.6-1.0) Estimated GFR (Cockcroft-Gault) 108.5 BUN/Creatinine Ratio 19 (6-20) Glucose Level 123 mg/dL (70-99) H Calcium Level 9.1 mg/dL (8.5-10.1) Magnesium Level 1.8 mg/dL (1.8-2.4) Total Bilirubin 0.3 mg/dL (0.2-1.0) Aspartate Amino Transferase (AST) 13 U/L (15-37) L Alanine Aminotransferase (ALT) 16 U/L (14-59) Alkaline Phosphatase 111 U/L (46-116) Troponin I Quantitative < 0.017 ng/mL (0.000-0.055) Total Protein 6.8 g/dL (6.4-8.2) Albumin 3.4 g/dL (3.4-5.0) Albumin/Globulin Ratio 1.0 (1.0-1.7) Lactic Acid Level 0.9 mmol/L (0.4-2.0) Urine Collection Type Unknown Urine Color Yellow Urine Clarity Clear Urine pH 6.5 Urine Specific [place] 1.025 Urine Protein Negative mg/dL (NEG-TRACE) Urine Glucose (UA) Negative mg/dL (NEG) Urine Ketones (Stick) Negative mg/dL (NEG) Urine Blood Negative (NEG) Urine Nitrite Negative (NEG) Urine Bilirubin Negative (NEG) Urine Urobilinogen Dipstick 0.2 mg/dL (0.2 mg/dL) Urine Leukocyte Esterase Negative (NEG) Urine RBC 1-2 /HPF (0-2) Urine WBC 1-4 /HPF (0-4) Urine Squamous Epithelial Cells Mod /LPF Urine Bacteria Few /HPF (0-FEW) Urine Mucus Marked /LPF Laboratory Tests 07/21/18 08:45 Laboratory Tests 07/21/18 08:45 EKG EKG EKG obtained 07/21/18 at [address] Terry Sinus rhythm Nonspecific ST-T wave abnorm. Rate 73 No STEMI Radiology/Procedures Radiology/Procedures PROCEDURE: CHEST PA & LATERAL Chest, 2 views, 07/21/2018: HISTORY: Cough Comparison is made to a study from 09/14/2017. The heart size is normal. No pulmonary infiltrate is seen. There is no evidence of pleural fluid. IMPRESSION: No acute cardiopulmonary abnormality is detected. Electronically signed by: Saul Adamson MD (07/21/2018 9:05 AM) [facility] DICTATED and SIGNED BY: SAUL ADAMSON MD DATE: 07/21/18 0904 Course & Med Decision Making Course & Med Decision Making Pertinent Labs and Imaging studies reviewed. (See chart for details) 0950: On reevaluation patient reports she has had improvement in her symptoms since arriving to ER and treatments received. Discussed test results with chest x-ray showing no acute findings; with no acute ST elevation or STEMI and troponin <0.017; WBCs 7.8 no bands; lactic acid NL at 0.9. Patient's heart rate is 74 with room air oxygen saturation at 99%. Patient has equal nonlabored respirations denying any chest pain or shortness of air at this time. Admission was offered for further care and monitoring. However patient and significant other both are preferring home discharge at this time as patient has had improved symptoms and tests are unremarkable. Patient states if symptoms worsen or with concerns she will return to ER or follow up with Dr. Florence her primary care physician. Pt will be given Rx for Ruth and 4 additional days of Prednisone with dose of Solu-Medrol given while in ER. Pt will be given Rx for Doxycycline and bronchitis/URI was discussed. Pt encouraged to increase fld intake. Discharge instructions were discussed w/education on s&s to return to ER for. Pt has inhaler/nebulizer at home. Smoking cessation was discussed. Pt agreeable with discharge plan as discussed. Dragon Disclaimer Dragon Disclaimer This electronic medical record was generated, in whole or in part, using a voice recognition dictation system. Departure Departure Impression: Primary Impression: Upper respiratory infection Additional Impression: Chest pain Disposition: 01 HOME, SELF-CARE Condition: STABLE Referrals: Elvin FLORENCE MD (PCP) Patient Instructions: Chest Wall Pain, Smoking Cessation, Upper Respiratory Infection, Adult Additional Instructions: Drink plenty of water. Avoid smoking. If symptoms worsen or with concerns follow- up with primary care physician or return to Emergency Department. Continue home nebulizer/inhaler as prescribed. Scripts Prednisone (PREDNISONE) 50 Mg Tablet 50 MG PO DAILY, #4 TAB 0 Refills start 07/22/18 Prov: ALFONSO RODGERS EXECUTIVE ADMINISTRATIVE ASSISTANT 07/21/18 Hydrocodone/Apap 5-325 (NORCO 5-325 TABLET) 1 Each Tablet 1 TAB PO PRN Q6HRS PRN for PAIN, #12 TAB 0 Refills Prov: ALFONSO RODGERS APRN 07/21/18 Doxycycline Monohydrate (DOXYCYCLINE MONOHYDRATE) 100 Mg Capsule 1 CAP PO BID, #14 CAP 0 Refills Prov: ALFONSO RODGERS APRN 07/21/18 Problem Qualifiers REFFITTALFONSO APRN Jul 21, 2018 08:41
[2018-07-21] MEDS ORDERED: methylPREDNISolone SOD SUCC PF 125 MG/2 ML VIAL. IV ONE (08:45)
[2018-07-21] MEDS ORDERED: IPRATRPIUM/ALBUTEROL 0.5/2.5MG 3 ML NEBU. NEB ONE (08:45)
[2018-07-21] MEDS ORDERED: IV NORMAL SALINE 1000ML BAG 1,000 ML IV ONE (08:45)
[2018-07-21] MEDS ORDERED: fentaNYL PF VIAL 100 MCG/2 ML VIAL IV ONE (08:45)
[2018-07-21 09:04] LABS: BASO # 0.1 x10^3/uL (0.0-0.2); BASO % 1 % (0-3); EOS # 0.3 x10^3/uL (0.0-0.7); EOS % 4 % (0-3); HEMATOCRIT 40.2 % (36.0-47.0); HEMOGLOBIN 13.9 g/dL (12.0-15.5); LYMPH # 2.3 x10^3/uL (1.0-4.8); LYMPH % 30 % (24-48); MEAN CORPUSCULAR HEMOGLOBIN 32 pg (25-35); MEAN CORPUSCULAR HGB CONC 35 g/dL (31-37); MEAN CORPUSCULAR VOLUME 92 fL (79-100); MONO # 0.5 x10^3/uL (0.0-1.1); MONO % 6 % (0-9); NEUT # 4.7 x10^3uL (1.8-7.7); NEUT % 60 % (31-73); PLATELET COUNT 206 x10^3/uL (140-400); RED BLOOD COUNT 4.35 x10^6/uL (3.50-5.40); RED CELL DISTRIBUTION WIDTH 13.9 % (11.5-14.5); WHITE BLOOD COUNT 7.8 x10^3/uL (4.0-11.0)
[2018-07-21 09:05] LABS: CALCIUM 9.1 mg/dL (8.5-10.1); CREATININE 0.7 mg/dL (0.6-1.0); GFR 108.5; POTASSIUM 3.9 mmol/L (3.5-5.1)
--- NOTE | 2018-07-21 09:06 | EKG ---
[facility] [address] [place] [address] Test Date: 2018-07-21 Test Time: 08:33:51 Pat Name: CALIXTO DANIEL Department: Room: Gender: F Head Rigger: : 1970 Requested By: ALFONSO RODGERS Order Number: [id number] Reading MD: Say Smith MD Measurements Intervals [place] Rate: 73 P: 43 AK: 160 QRS: 53 QRSD: 78 T: 26 QT: 368 QTc: 408 Interpretive Statements SINUS RHYTHM Electronically Signed On 07-25-2018 8:25:01 CONVEYOR MAINTENANCE MECHANIC by Say Smith MD
--- NOTE | 2018-07-21 09:08 | RAD ---
Chest, 2 views, 07/21/2018: HISTORY: Cough Comparison is made to a study from 09/14/2017. The heart size is normal. No pulmonary infiltrate is seen. There is no evidence of pleural fluid. IMPRESSION: No acute cardiopulmonary abnormality is detected. Electronically signed by: Saul Adamson MD (07/21/2018 9:05 AM) [facility]
[2018-07-21 09:13] LABS: ALBUMIN 3.4 g/dL (3.4-5.0); MAGNESIUM 1.8 mg/dL (1.8-2.4); TOTAL BILIRUBIN 0.3 mg/dL (0.2-1.0); TOTAL PROTEIN 6.8 g/dL (6.4-8.2)
[2018-07-21 09:59] LABS: BILIRUBIN,URINE NEGATIVE (NEG); CLARITY,URINE CLEAR; COLOR,URINE YELLOW; NITRITE,URINE NEGATIVE (NEG); PH,URINE 6.5; PROTEIN,URINE NEGATIVE (NEG-TRACE); UROBILINOGEN,URINE 0.2 mg/dL (0.2 mg/dL)
[2018-07-21] MEDS ORDERED: HYDR-3164 PO (09:59)
[2018-07-21] MEDS ORDERED: PRED50TA PO (09:59)
[2018-07-21] MEDS ORDERED: DOXY100C14 PO (09:59)
[2018-07-21 10:10] VITALS: BP 125/82
[2018-07-21 10:11] LABS: BACTERIA,URINE FEW /HPF (0-FEW); SQUAMOUS EPITHELIAL CELL,UR MOD /LPF
== END 2018-07-21 10:39 | disposition home or self-care (01) ==
LOC: ER 08:03
DX: J06.9 Acute upper respiratory infection, unspecified (principal); R07.89 Other chest pain; R30.0 Dysuria; J45.909 Unspecified asthma, uncomplicated; E11.9 Type 2 diabetes mellitus without complications; I10 Essential (primary) hypertension; F17.200 Nicotine dependence, unspecified, uncomplicated
CPT/HCPCS: 36415; 71046; 80053; 81001; 83605; 83735; 84484; 85025; 87040; 93005; 94640; 96374; 96375; 99284; J2930; J3010; J7030; J7620

== ENCOUNTER 2018-11-23 19:11 | Emergency (ER) | payer OTHER ==
[~2018-11-23] VITALS: Ht 175.3 cm; Wt 94.3 kg
[~2018-11-23 19:11] MED LIST changes: +ALBU2.5V8 INH; +DOXY100C14 PO; +PRED50TA PO; -PROAIR HFA8.5 GM INH
[2018-11-23 19:15] VITALS: BP 142/80
[2018-11-23] MEDS ORDERED: NAPROXEN 500 MG TABLET PO STA (19:24)
[2018-11-23] MEDS ORDERED: HYDROcodone/APAP 5/325MG 1 TAB TABLET PO ONE (19:30)
[2018-11-23] MEDS ORDERED: AMOX875T PO (19:32)
[2018-11-23] MEDS ORDERED: HYDR-3164 PO (19:32)
--- NOTE | 2018-11-23 19:32 | PHYS DOC ---
Past Medical History Past Medical History: Asthma, Diabetes-Type II, Hypertension, Kidney Stone, Other Additional Past Medical Histor: SVT Past Surgical History: Hysterectomy, Tubal ligation, Other Additional Past Surgical Histo: kideny stent placed & removed, cryotherapy, CARDIOVERSION Alcohol Use: Occasionally Drug Use: None Adult General Chief Complaint Chief Complaint: EARACHE/EAR PAIN [facility] HPI Patient is a 48 year old female with a history of diabetes, hypertension presents today complaining of left hip pain, sore throat, symptoms began 1 wk ago. She states she was seen by the PCP and was initially diagnosed with a sinus infection and put on a Z-Pedro. She states the medicine is not working. Denies any fever but states she has had chills. Review of Systems Review of Systems Constitutional: Reports chills, denies fever Eyes: Denies change in visual acuity, redness, or eye pain [] HENT: Reports sore throat. Reports left ear pain, nasal congestion Respiratory: Denies cough or shortness of breath [] Cardiovascular: No additional information not addressed in HPI [] GI: Denies abdominal pain, nausea, vomiting, bloody stools or diarrhea [] : Denies dysuria or hematuria [] Musculoskeletal: Denies back pain or joint pain [] Integument: Denies rash or skin lesions [] Neurologic: Denies headache, focal weakness or sensory changes [] All other systems were reviewed and found to be within normal limits, except as documented in this note. Allergies Allergies Allergies Coded Allergies Type Severity Reaction Last Updated Verified No Known Drug Allergies 05/30/15 No Physical Exam Physical Exam Constitutional: Well developed, well nourished, no acute distress, non-toxic appearance. [] HENT: Normocephalic, atraumatic, bilateral external ears normal, oropharynx moist, no oral exudates, nose normal. [] Left TM is mildly injected, +2 tonsils. No erythema. No exudate, midline uvula Eyes: PERRLA, EOMI, conjunctiva normal, no discharge. [] Neck: Normal range of motion, no tenderness, supple, no stridor. [] Cardiovascular:Heart rate regular rhythm, no murmur [] Lungs & Thorax: Bilateral breath sounds clear to auscultation [] Abdomen: Bowel sounds normal, soft, no tenderness, no masses, no pulsatile masses. [] Skin: Warm, dry, no erythema, no rash. [] Back: No tenderness, no CVA tenderness. [] Extremities: No tenderness, no cyanosis, no clubbing, ROM intact, no edema. [] Neurologic: Alert and oriented X 3, normal motor function, normal sensory function, no focal deficits noted. [] Psychologic: Affect normal, judgement normal, mood normal. [] EKG EKG [] Radiology/Procedures Radiology/Procedures [] Course & Med Decision Making Course & Med Decision Making Pertinent Labs and Imaging studies reviewed. (See chart for details) This is a 48-year-old female patient with otitis media, and pharyngitis. Was started on z-pack by PCP no improvement. D/c on Amoxicillin. F/u with PCP in 1- 2 weeks. Dragon Disclaimer Dragon Disclaimer This electronic medical record was generated, in whole or in part, using a voice recognition dictation system. Departure Departure Impression: Primary Impression: Acute pharyngitis Additional Impression: Otitis media Disposition: HOME, SELF-CARE Condition: STABLE Referrals: Elvin FRIEDMAN MD (PCP) follow up in 1 - 2 weeks Patient Instructions: Otitis Media, Adult, Viral and Bacterial Pharyngitis Additional Instructions: You were seen for pharyngitis and otitis media. Please complete your current antibiotics, please stop taking the azithromycin. Follow-up with your doctor in 1-2 weeks. Scripts Amoxicillin (AMOXICILLIN) 875 Mg Tablet 1 TAB PO BID, #20 TAB Prov: CHICHI ASCENCIO APRN 11/23/18 Hydrocodone/Apap 5-325 (NORCO 5-325 TABLET) 1 Each Tablet 1 TAB PO Q6HRS, #8 TAB Prov: CHICHI ASCENCIO APRN 11/23/18 Problem Qualifiers Primary Impression: Acute pharyngitis Pharyngitis/tonsillitis etiology: unspecified etiology Qualified Codes: J02.9 - Acute pharyngitis, unspecified Additional Impression: Otitis media Otitis media type: other nonsuppurative Chronicity: acute Laterality: left Recurrence: non-recurrent Qualified Codes: H65.192 - Other acute nonsuppurative otitis media, left ear CHICHI ASCENCIO APRN Nov 23, 2018 19:32
== END 2018-11-23 19:35 | disposition home or self-care (01) ==
LOC: ER 19:11
DX: H65.192 Other acute nonsuppurative otitis media, left ear (principal); J02.9 Acute pharyngitis, unspecified; I10 Essential (primary) hypertension; E11.9 Type 2 diabetes mellitus without complications; J45.909 Unspecified asthma, uncomplicated
CPT/HCPCS: 99283

== ENCOUNTER 2019-05-02 17:22 | Inpatient (IN) | payer MEDICAID, OTHER ==
[~2019-05-02] VITALS: Ht 175.3 cm; Wt 96.6 kg
[~2019-05-02 17:22] MED LIST changes: +AMOX875T PO
--- NOTE | 2019-05-02 17:43 | PHYS DOC ---
Past Medical History Past Medical History: Asthma, Diabetes-Type II, Hypertension, Kidney Stone, Other Additional Past Medical Histor: SVT Past Surgical History: Hysterectomy, Tubal ligation, Other Additional Past Surgical Histo: kideny stent placed & removed, cryotherapy,CARDIOVERSION Alcohol Use: Occasionally Drug Use: None Adult General Chief Complaint Chief Complaint: CHEST PAIN HPI HPI Patient is a 48 year old female with history of diabetes type 2, hypertension, asthma, who presents to the ED today complaining of 8 out of 10 "wavy"-like chest pain that began yesterday. Patient denies anything exacerbating or relieving the pain. She states she was seen at [facility] yesterday but it was "a mad house" and she left before lab work was done. She states she called her PCP today and was instructed to come to the ED right on the way and be admitted Review of Systems Review of Systems Constitutional: Denies fever or chills [] Eyes: Denies change in visual acuity, redness, or eye pain [] HENT: Denies nasal congestion or sore throat [] Respiratory: Denies cough or shortness of breath [] Cardiovascular: Reports left sided chest pain GI: Denies abdominal pain, nausea, vomiting, bloody stools or diarrhea [] : Denies dysuria or hematuria [] Musculoskeletal: Denies back pain or joint pain [] Integument: Denies rash or skin lesions [] Neurologic: Denies headache, focal weakness or sensory changes [] All other systems were reviewed and found to be within normal limits, except as documented in this note. Current Medications Current Medications Current Medications Medications (Trade) Dose Ordered Sig/[facility] Start Time Stop Time Status Last Admin Dose Admin Aspirin (Sabrina Aspirin) 325 mg 1X ONCE 05/02/19 18:15 05/02/19 18:16 DC 05/02/19 18:01 325 MG Morphine Sulfate (Morphine Sulfate) 2 mg PRN Q15MIN PRN 05/02/19 17:45 05/03/19 17:44 05/02/19 20:11 2 MG Nitroglycerin (Nitrostat) 0.4 mg PRN Q5MIN PRN 05/02/19 17:45 05/03/19 17:44 05/02/19 18:01 0.4 MG Ondansetron HCl (Zofran) 4 mg 1X ONCE 05/02/19 18:30 05/02/19 18:31 DC 05/02/19 18:01 4 MG Sodium Chloride 1,000 ml @ 1,000 mls/hr 1X ONCE 05/02/19 17:45 05/02/19 18:44 DC 05/02/19 18:01 1,000 MLS/HR Allergies Allergies Allergies Coded Allergies Type Severity Reaction Last Updated Verified No Known Drug Allergies 05/30/15 No Physical Exam Physical Exam Constitutional: Well developed, well nourished, no acute distress, non-toxic appearance. [] HENT: Normocephalic, atraumatic, bilateral external ears normal, oropharynx moist, no oral exudates, nose normal. [] Eyes: PERRLA, EOMI, conjunctiva normal, no discharge. [] Neck: Normal range of motion, no tenderness, supple, no stridor. [] Cardiovascular:Heart rate regular rhythm, no murmur [] Lungs & Thorax: Bilateral breath sounds clear to auscultation [] Abdomen: Bowel sounds normal, soft, no tenderness, no masses, no pulsatile masses. [] Skin: Warm, dry, no erythema, no rash. [] Back: No tenderness, no CVA tenderness. [] Extremities: No tenderness, no cyanosis, no clubbing, ROM intact, no edema. [] Neurologic: Alert and oriented X 3, normal motor function, normal sensory function, no focal deficits noted. [] Psychologic: Affect normal, judgement normal, mood normal. [] Current Patient Data Vital Signs Vital Signs Date Time Temp Pulse Resp B/P (MAP) Pulse Ox O2 Delivery O2 Flow Rate FiO2 05/02/19 19:51 68 18 131/75 (93) 95 Room Air 05/02/19 17:30 97.4 97.4 Lab Values Laboratory Tests Test 05/02/19 15:30 05/02/19 17:30 05/02/19 19:05 White Blood Count 8.7 x10^3/uL (4.0-11.0) Red Blood Count 4.57 x10^6/uL (3.50-5.40) Hemoglobin 14.3 g/dL (12.0-15.5) Hematocrit 42.1 % (36.0-47.0) Mean Corpuscular Volume 92 fL (79-100) Mean Corpuscular Hemoglobin 31 pg (25-35) Mean Corpuscular Hemoglobin Concent 34 g/dL (31-37) Red Cell Distribution Width 14.0 % (11.5-14.5) Platelet Count 219 x10^3/uL (140-400) Neutrophils (%) (Auto) 52 % (31-73) Lymphocytes (%) (Auto) 39 % (24-48) Monocytes (%) (Auto) 5 % (0-9) Eosinophils (%) (Auto) 3 % (0-3) Basophils (%) (Auto) 1 % (0-3) Neutrophils # (Auto) 4.5 x10^3/uL (1.8-7.7) Lymphocytes # (Auto) 3.4 x10^3/uL (1.0-4.8) Monocytes # (Auto) 0.5 x10^3/uL (0.0-1.1) Eosinophils # (Auto) 0.3 x10^3/uL (0.0-0.7) Basophils # (Auto) 0.1 x10^3/uL (0.0-0.2) Prothrombin Time 12.4 SEC (11.7-14.0) Prothrombin Time INR 1.0 (0.8-1.1) Thyroid Stimulating Hormone (TSH) 1.487 uIU/mL (0.358-3.74) Sodium Level 143 mmol/L (136-145) Potassium Level 3.5 mmol/L (3.5-5.1) Chloride Level 106 mmol/L (98-107) Carbon Dioxide Level 28 mmol/L (21-32) Anion Gap 9 (6-14) Blood Urea Nitrogen 18 mg/dL (7-20) Creatinine 0.9 mg/dL (0.6-1.0) Estimated GFR (Cockcroft-Gault) 81.2 BUN/Creatinine Ratio 20 (6-20) Glucose Level 122 mg/dL (70-99) H Calcium Level 8.8 mg/dL (8.5-10.1) Magnesium Level 1.8 mg/dL (1.8-2.4) Total Bilirubin 0.5 mg/dL (0.2-1.0) Aspartate Amino Transferase (AST) 11 U/L (15-37) L Alanine Aminotransferase (ALT) 12 U/L (14-59) L Alkaline Phosphatase 95 U/L (46-116) Creatine Kinase 89 U/L (26-192) Creatine Kinase MB (Mass) < 0.5 ng/mL (0.0-3.6) Creatine Kinase MB Relative Index % (0-4) Troponin I Quantitative < 0.017 ng/mL (0.000-0.055) PN-Rlv-A-Type Natriuretic Peptide 18 pg/mL (0-124) Total Protein 6.8 g/dL (6.4-8.2) Albumin 3.4 g/dL (3.4-5.0) Albumin/Globulin Ratio 1.0 (1.0-1.7) Urine Collection Type Unknown Urine Color Yellow Urine Clarity Clear Urine pH 6.5 Urine Specific [place] 1.020 Urine Protein Negative mg/dL (NEG-TRACE) Urine Glucose (UA) Negative mg/dL (NEG) Urine Ketones (Stick) Negative mg/dL (NEG) Urine Blood Negative (NEG) Urine Nitrite Negative (NEG) Urine Bilirubin Negative (NEG) Urine Urobilinogen Dipstick 1.0 mg/dL (0.2 mg/dL) Urine Leukocyte Esterase Negative (NEG) Urine RBC 3-5 /HPF (0-2) Urine WBC 1-4 /HPF (0-4) Urine Squamous Epithelial Cells Mod /LPF Urine Amorphous Sediment Present /HPF Urine Bacteria 0 /HPF (0-FEW) Urine Mucus Mod /LPF Urine Opiates Screen Pos (NEG) Urine Methadone Screen Neg (NEG) Urine Barbiturates Neg (NEG) Urine Phencyclidine Screen Neg (NEG) Urine Amphetamine/Methamphetamine Neg (NEG) Urine Benzodiazepines Screen Neg (NEG) Urine Cocaine Screen Neg (NEG) Urine Cannabinoids Screen Neg (NEG) Urine Ethyl Alcohol Neg (NEG) Laboratory Tests 05/02/19 15:30 Laboratory Tests 05/02/19 17:30 EKG EKG 1756 interpreted by sinus rhythm HR 71 no STEMI Radiology/Procedures Radiology/Procedures []PROCEDURE: PORTABLE CHEST 1V AP portable chest radiograph 05/02/2019 Clinical History: . An AP erect portable digital radiograph of the chest was obtained. Comparison study is dated 07/21/2018. The cardiac and mediastinal silhouettes are within normal limits in size and configuration. No acute infiltrate is seen. No pleural effusion or pneumothorax is noted. The osseous structures are grossly intact. Impression: No acute abnormality is seen. Electronically signed by: Kendall Akbar MD (05/02/2019 8:37 PM) [facility] DICTATED and SIGNED BY: KENDALL AKBAR MD DATE: 05/02/192036 Course & Med Decision Making Course & Med Decision Making Pertinent Labs and Imaging studies reviewed. (See chart for details) This is a 48-year-old female patient who presents to the ED today with chest pain that began yesterday. Chest x-ray, EKG, cardiac workup-negative Spoke with Dr. Florence who accepted patient for admission See Heart score template Dragon Disclaimer Dragon Disclaimer This electronic medical record was generated, in whole or in part, using a voice recognition dictation system. The HEART Score for CP Pts HEART Score for Chest Pain: HEART Score for Chest Pain Response (Comments) Value History Slighlty/Non-Suspicious 0 ECG Normal 0 Age >45 - < 65 1 Risk Factors 1 or 2 Risk Factors 1 Troponin < Normal Limit 0 Total 2 Risk Factors: Risk Factors: DM, Current or recent (<one month) smoker, HTN, HLP, family history of CAD, obesity. Risk Scores: Score 0 - 3: 2.5% MACE over next 6 weeks - Discharge Home Score 4 - 6: 20.3% MACE over next 6 weeks - Admit for Clinical Observation Score 7 - 10: 72.7% MACE over next 6 weeks - Early Invasive Strategies Departure Departure Impression: Primary Impression: Chest pain Disposition: ADMITTED INPATIENT Condition: STABLE Referrals: Elvin FLORENCE MD (PCP) Problem Qualifiers Primary Impression: Chest pain Chest pain type: unspecified Qualified Codes: R07.9 - Chest pain, unspec ified CHICHI ASCENCIO X RAY CONSULTANT May 02, 2019 17:43
[2019-05-02] MEDS ORDERED: NITROGLYCERIN SUBLINGUAL 0.4 MG BOTTLE OF 25. SL PRN ×2 (17:45→20:30)
[2019-05-02] MEDS ORDERED: IV NORMAL SALINE 1000ML BAG 1,000 ML IV ONE (17:45)
[2019-05-02 17:54] LABS: BASO # 0.1 x10^3/uL (0.0-0.2); BASO % 1 % (0-3); EOS # 0.3 x10^3/uL (0.0-0.7); EOS % 3 % (0-3); HEMATOCRIT 42.1 % (36.0-47.0); HEMOGLOBIN 14.3 g/dL (12.0-15.5); LYMPH # 3.4 x10^3/uL (1.0-4.8); LYMPH % 39 % (24-48); MEAN CORPUSCULAR HEMOGLOBIN 31 pg (25-35); MEAN CORPUSCULAR HGB CONC 34 g/dL (31-37); MEAN CORPUSCULAR VOLUME 92 fL (79-100); MONO # 0.5 x10^3/uL (0.0-1.1); MONO % 5 % (0-9); NEUT # 4.5 x10^3/uL (1.8-7.7); NEUT % 52 % (31-73); PLATELET COUNT 219 x10^3/uL (140-400); RED BLOOD COUNT 4.57 x10^6/uL (3.50-5.40); WHITE BLOOD COUNT 8.7 x10^3/uL (4.0-11.0)
[2019-05-02] MEDS: MORPHINE SULFATE 2 MG/ML VIAL. IV/SQ PRN ×3 (18:01→20:11)
[2019-05-02 18:06] LABS: PROTHROMBIN TIME PATIENT 12.4 SEC (11.7-14.0)
[2019-05-02] MEDS ORDERED: ASPIRIN 325 MG TABLET PO ONE (18:15)
[2019-05-02 18:24] LABS: CALCIUM 8.8 mg/dL (8.5-10.1); CREATININE 0.9 mg/dL (0.6-1.0); GFR 81.2; POTASSIUM 3.5 mmol/L (3.5-5.1)
[2019-05-02 18:30] LABS: ALBUMIN 3.4 g/dL (3.4-5.0); MAGNESIUM 1.8 mg/dL (1.8-2.4); TOTAL BILIRUBIN 0.5 mg/dL (0.2-1.0); TOTAL PROTEIN 6.8 g/dL (6.4-8.2)
[2019-05-02] MEDS ORDERED: ONDANSETRON PF 4 MG/2 ML VIAL. IV ONE ×2 (18:30→20:30)
--- NOTE | 2019-05-02 18:35 | EKG ---
[facility] [address] [place] [address] Test Date: 2019-05-02 Test Time: 17:29:39 Pat Name: CALIXTO GENTILE Department: Room: Gender: F Viticulturist: : 1970 Requested By: CHICHI ASCENCIO Order Number: [id number] Reading MD: Measurements Intervals [place] Rate: 70 P: 52 CT: 158 QRS: 62 QRSD: 84 T: 30 QT: 368 QTc: 404 Interpretive Statements SINUS RHYTHM NORMAL ECG No previous ECG available for comparison
[2019-05-02 18:38] LABS: CREATINE KINASE 89 U/L (26-192)
[2019-05-02 19:17] LABS: BILIRUBIN,URINE NEGATIVE (NEG); CLARITY,URINE CLEAR; COLOR,URINE YELLOW; NITRITE,URINE NEGATIVE (NEG); PH,URINE 6.5; PROTEIN,URINE NEGATIVE (NEG-TRACE)
[2019-05-02 19:22] LABS: SQUAMOUS EPITHELIAL CELL,UR MOD /LPF
[2019-05-02 19:23] LABS: AMORPHOUS SEDIMENT,UR PRESENT /HPF; BACTERIA,URINE 0 /HPF (0-FEW); BARBITURATES NEG (NEG); BENZODIAZEPINES NEG (NEG); CANNABINOIDS NEG (NEG); COCAINE NEG (NEG); METHADONE NEG (NEG); OPIATES POS (NEG); PHENCYCLIDINE NEG (NEG)
[2019-05-02 19:26] LABS: AMPHETAMINE/METHAMPHETAMINE NEG (NEG)
[2019-05-02 20:23] VITALS: BP 153/91
--- NOTE | 2019-05-02 20:23 | NUR ---
The patient, CALIXTO GENTILE, 48 y/o, F admitted by Elvin FRIEDMAN MD, was given written information regarding hospital policies, unit procedures and contact persons. Valuables were checked and patient assessment completed. RN will continue to monitor.
[2019-05-02] MEDS ORDERED: MORPHINE SULFATE 4 MG/ML VIAL. IV PRN (20:30)
[2019-05-02] MEDS ORDERED: ONDANSETRON PF 4 MG/2 ML VIAL. IV PRN (20:30)
--- NOTE | 2019-05-02 20:41 | RAD ---
AP portable chest radiograph 05/02/2019 Clinical History: . An AP erect portable digital radiograph of the chest was obtained. Comparison study is dated 07/21/2018. The cardiac and mediastinal silhouettes are within normal limits in size and configuration. No acute infiltrate is seen. No pleural effusion or pneumothorax is noted. The osseous structures are grossly intact. Impression: No acute abnormality is seen. Electronically signed by: Kendall Akbar MD (05/02/2019 8:37 PM) [facility]
[2019-05-03] MEDS ORDERED: METO25TA4 PO (01:55)
[2019-05-03] MEDS ORDERED: PARO30TA3 PO (01:57)
[2019-05-03 03:00] VITALS: BP 129/75
[2019-05-03 03:01] LABS: BASO % 0 % (0-3); EOS # 0.3 x10^3/uL (0.0-0.7); EOS % 4 % (0-3); HEMATOCRIT 40.1 % (36.0-47.0); HEMOGLOBIN 13.5 g/dL (12.0-15.5); LYMPH % 48 % (24-48); MEAN CORPUSCULAR HEMOGLOBIN 31 pg (25-35); MEAN CORPUSCULAR HGB CONC 34 g/dL (31-37); MEAN CORPUSCULAR VOLUME 93 fL (79-100); MONO # 0.4 x10^3/uL (0.0-1.1); MONO % 5 % (0-9); NEUT # 3.6 x10^3/uL (1.8-7.7); NEUT % 43 % (31-73); PLATELET COUNT 206 x10^3/uL (140-400); RED BLOOD COUNT 4.34 x10^6/uL (3.50-5.40); RED CELL DISTRIBUTION WIDTH 14.1 % (11.5-14.5); WHITE BLOOD COUNT 8.3 x10^3/uL (4.0-11.0)
[2019-05-03 03:32] LABS: CALCIUM 8.3 mg/dL (8.5-10.1); CREATININE 0.8 mg/dL (0.6-1.0); POTASSIUM 3.5 mmol/L (3.5-5.1)
[2019-05-03] MEDS ORDERED: diphenhydrAMINE HCL 25 MG CAPSULE PO PRN (04:00)
[2019-05-03 05:55] VITALS: BP 133/83
[2019-05-03 07:49] VITALS: BP 126/81
[2019-05-03] MEDS ORDERED: METOPROLOL SUCC 24HR ER 25 MG TAB.ER.24H. PO SCH (09:00)
[2019-05-03] MEDS ORDERED: PARoxetine 10 MG TABLET PO SCH (09:00)
[2019-05-03] MEDS ORDERED: PANTOPRAZOLE 40 MG TABLET.DR. PO ONE (09:00)
--- NOTE | 2019-05-03 09:13 | PDOC2 ---
CARDIAC CONSULT DATE OF CONSULT Date of Consult DATE: 05/03/19 TIME: 08:45 REASON FOR CONSULT Reason for Consult: Chest pain REFERRING PHYSICIAN Referring Physician: Di SOURCE Source: Chart review, Patient HISTORY OF PRESENT ILLNESS HISTORY OF PRESENT ILLNESS This is a pleasant 48 yo female admitted for complains of chest pain. Reports that she was at [facility] 2 days ago for the same problem and was treated over there but left because of the surrounding with people vomiting next to her and was very chaotic. The next day her intermittent CP persisted. Reports as sharp shooting discomfort to her lower sternal region going to left chest at times lasting seconds and intermittent. Also with some nausea. Also some palpitations at night. Denies any jaw tightness or arm heaviness. No diaphoresis or vomiting. Reports no exertional CP nor VIVEROS. No past hx of VTE, CAD but positive for past hx of PSVT with 2 cardioversions in remote past. Jignesh used to follow up with Dr. Phipps and is transferring to our care. Denies any recreational drugs but still smokes tobacco. No recent injury, falls, and no intractable coughing. She eats spicy food and lays down right away after eating. She has not tried any antacids nor Acid reducing agents. she has anxiety and depression and verbalized control with her medications. PAST MEDICAL HISTORY Cardiovascular: HTN, Other (PSVT with past 2 cardioversion last one in 2008) Pulmonary: Asthma CENTRAL NERVOUS SYSTEM: Other (No pertinent history) GI: No pertinent hx Heme/Onc: No pertinent hx Hepatobiliary: No pertinent hx Psych: Anxiety, Depression Musculoskeletal: Other (No hx) Rheumatologic: No pertinent hx Infectious disease: No pertinent hx ENT: No pertinent hx Renal/: UTI, Other (nephrlithiasis) Endocrine: Diabetes Dermatology: No pertinent hx PAST SURGICAL HISTORY Past Surgical History: Tubal Ligation, Hysterectomy, Other (cystoscopy with ureteral stent placement and removal) FAMILY HISTORY Family History: Coronary Artery Disease (mother with cardiac arrest at 47 yo) SOCIAL HISTORY Smoke: <1 pack per day (since she was 20 yo) ALCOHOL: none Drugs: None Lives: with Family CURRENT MEDICATIONS CURRENT MEDICATIONS Current Medications Medications (Trade) Dose Ordered Sig/Laila Route PRN Reason Start Time Stop Time Status Last Admin Dose Admin Aspirin (Sabrina Aspirin) 325 mg 1X ONCE PO 05/02/19 18:15 05/02/19 18:16 DC 05/02/19 18:01 Nitroglycerin (Nitrostat) 0.4 mg PRN Q5MIN PRN SL CP RATING > 1/10 05/02/19 17:45 05/03/19 17:44 05/02/19 18:01 Morphine Sulfate (Morphine Sulfate) 2 mg PRN Q15MIN PRN IV/SQ PAIN GREATER THAN 3/10 05/02/19 17:45 05/03/19 17:44 05/02/19 20:11 Sodium Chloride 1,000 ml @ 1,000 mls/hr 1X ONCE IV 05/02/19 17:45 05/02/19 18:44 DC 05/02/19 18:01 Ondansetron HCl (Zofran) 4 mg 1X ONCE IV 05/02/19 18:30 05/02/19 18:31 DC 05/02/19 18:01 Ondansetron HCl (Zofran) 4 mg 1X ONCE IV 05/02/19 20:30 05/02/19 20:35 DC 05/02/19 20:39 Ondansetron HCl (Zofran) 4 mg PRN Q8HRS PRN IV NAUSEA/VOMITING 05/02/19 20:30 05/03/19 20:29 05/03/19 00:58 Morphine Sulfate (Morphine Sulfate) 4 mg PRN Q2HR PRN IV PAIN 05/02/19 20:30 05/03/19 20:29 05/02/19 21:51 Diphenhydramine HCl (Benadryl) 25 mg PRN Q6HRS PRN PO ITCHING 05/03/19 04:00 05/03/19 04:13 ALLERGIES ALLERGIES: Coded Allergies: No Known Drug Allergies (Unverified , 05/30/15) ROS Review of System 14 point ROS evaluated with pertinent positives noted per HPI PHYSICAL EXAM General: Alert, Oriented X3, Cooperative, No acute distress HEENT: Atraumatic, Mucous membr. moist/pink Lungs: Clear to auscultation, Normal air movement Heart: Regular rate (SR), Normal S1, Normal S2, No murmurs Abdomen: Soft, No tenderness Extremities: No cyanosis, No edema Skin: No breakdown, No significant lesion Neuro: Normal speech, Sensation intact Psych/Mental Status: Mental status NL, Mood NL MUSCULOSKELETAL: Full range of motion without pain VITALS/I&O VITALS/I&O: Vital Signs Date Time Temp Pulse Resp B/P (MAP) Pulse Ox O2 Delivery O2 Flow Rate FiO2 05/03/19 07:49 98.3 75 18 126/81 (96) 98 Room Air 98.3 I & O 05/02/19 05/02/19 05/03/19 15:00 23:00 07:00 Intake Total 1000 ml 300 ml Balance 1000 ml 300 ml LABS Lab: Laboratory Tests Test 05/02/19 15:30 05/02/19 17:30 05/02/19 19:05 05/02/19 20:50 White Blood Count 8.7 x10^3/uL (4.0-11.0) Red Blood Count 4.57 x10^6/uL (3.50-5.40) Hemoglobin 14.3 g/dL (12.0-15.5) Hematocrit 42.1 % (36.0-47.0) Mean Corpuscular Volume 92 fL (79-100) Mean Corpuscular Hemoglobin 31 pg (25-35) Mean Corpuscular Hemoglobin Concent 34 g/dL (31-37) Red Cell Distribution Width 14.0 % (11.5-14.5) Platelet Count 219 x10^3/uL (140-400) Neutrophils (%) (Auto) 52 % (31-73) Lymphocytes (%) (Auto) 39 % (24-48) Monocytes (%) (Auto) 5 % (0-9) Eosinophils (%) (Auto) 3 % (0-3) Basophils (%) (Auto) 1 % (0-3) Neutrophils # (Auto) 4.5 x10^3/uL (1.8-7.7) Lymphocytes # (Auto) 3.4 x10^3/uL (1.0-4.8) Monocytes # (Auto) 0.5 x10^3/uL (0.0-1.1) Eosinophils # (Auto) 0.3 x10^3/uL (0.0-0.7) Basophils # (Auto) 0.1 x10^3/uL (0.0-0.2) Prothrombin Time 12.4 SEC (11.7-14.0) Prothrombin Time INR 1.0 (0.8-1.1) Thyroid Stimulating Hormone (TSH) 1.487 uIU/mL (0.358-3.74) Sodium Level 143 mmol/L (136-145) Potassium Level 3.5 mmol/L (3.5-5.1) Chloride Level 106 mmol/L (98-107) Carbon Dioxide Level 28 mmol/L (21-32) Anion Gap 9 (6-14) Blood Urea Nitrogen 18 mg/dL (7-20) Creatinine 0.9 mg/dL (0.6-1.0) Estimated GFR (Cockcroft-Gault) 81.2 BUN/Creatinine Ratio 20 (6-20) Glucose Level 122 mg/dL (70-99) H Calcium Level 8.8 mg/dL (8.5-10.1) Magnesium Level 1.8 mg/dL (1.8-2.4) Total Bilirubin 0.5 mg/dL (0.2-1.0) Aspartate Amino Transferase (AST) 11 U/L (15-37) L Alanine Aminotransferase (ALT) 12 U/L (14-59) L Alkaline Phosphatase 95 U/L (46-116) Creatine Kinase 89 U/L (26-192) Creatine Kinase MB (Mass) < 0.5 ng/mL (0.0-3.6) Creatine Kinase MB Relative Index % (0-4) Troponin I Quantitative < 0.017 ng/mL (0.000-0.055) < 0.017 ng/mL (0.000-0.055) JY-Hbs-W-Type Natriuretic Peptide 18 pg/mL (0-124) Total Protein 6.8 g/dL (6.4-8.2) Albumin 3.4 g/dL (3.4-5.0) Albumin/Globulin Ratio 1.0 (1.0-1.7) Urine Collection Type Unknown Urine Color Yellow Urine Clarity Clear Urine pH 6.5 Urine Specific [place] 1.020 Urine Protein Negative mg/dL (NEG-TRACE) Urine Glucose (UA) Negative mg/dL (NEG) Urine Ketones (Stick) Negative mg/dL (NEG) Urine Blood Negative (NEG) Urine Nitrite Negative (NEG) Urine Bilirubin Negative (NEG) Urine Urobilinogen Dipstick 1.0 mg/dL (0.2 mg/dL) Urine Leukocyte Esterase Negative (NEG) Urine RBC 3-5 /HPF (0-2) Urine WBC 1-4 /HPF (0-4) Urine Squamous Epithelial Cells Mod /LPF Urine Amorphous Sediment Present /HPF Urine Bacteria 0 /HPF (0-FEW) Urine Mucus Mod /LPF Urine Opiates Screen Pos (NEG) Urine Methadone Screen Neg (NEG) Urine Barbiturates Neg (NEG) Urine Phencyclidine Screen Neg (NEG) Urine Amphetamine/Methamphetamine Neg (NEG) Urine Benzodiazepines Screen Neg (NEG) Urine Cocaine Screen Neg (NEG) Urine Cannabinoids Screen Neg (NEG) Urine Ethyl Alcohol Neg (NEG) Test 05/03/19 01:10 05/03/19 03:00 05/03/19 07:32 Troponin I Quantitative < 0.017 ng/mL (0.000-0.055) White Blood Count 8.3 x10^3/uL (4.0-11.0) Red Blood Count 4.34 x10^6/uL (3.50-5.40) Hemoglobin 13.5 g/dL (12.0-15.5) Hematocrit 40.1 % (36.0-47.0) Mean Corpuscular Volume 93 fL (79-100) Mean Corpuscular Hemoglobin 31 pg (25-35) Mean Corpuscular Hemoglobin Concent 34 g/dL (31-37) Red Cell Distribution Width 14.1 % (11.5-14.5) Platelet Count 206 x10^3/uL (140-400) Neutrophils (%) (Auto) 43 % (31-73) Lymphocytes (%) (Auto) 48 % (24-48) Monocytes (%) (Auto) 5 % (0-9) Eosinophils (%) (Auto) 4 % (0-3) H Basophils (%) (Auto) 0 % (0-3) Neutrophils # (Auto) 3.6 x10^3/uL (1.8-7.7) Lymphocytes # (Auto) 4.0 x10^3/uL (1.0-4.8) Monocytes # (Auto) 0.4 x10^3/uL (0.0-1.1) Eosinophils # (Auto) 0.3 x10^3/uL (0.0-0.7) Basophils # (Auto) 0.0 x10^3/uL (0.0-0.2) Sodium Level 147 mmol/L (136-145) H Potassium Level 3.5 mmol/L (3.5-5.1) Chloride Level 108 mmol/L (98-107) H Carbon Dioxide Level 31 mmol/L (21-32) Anion Gap 8 (6-14) Blood Urea Nitrogen 13 mg/dL (7-20) Creatinine 0.8 mg/dL (0.6-1.0) Estimated GFR (Cockcroft-Gault) 93.0 Glucose Level 98 mg/dL (70-99) Calcium Level 8.3 mg/dL (8.5-10.1) L Glucose (Fingerstick) 87 mg/dL (70-99) Laboratory Tests 05/02/19 15:30 05/03/19 03:00 Laboratory Tests 05/02/19 17:30 05/03/19 03:00 ASSESSMENT/PLAN ASSESSMENT/PLAN 1. Atypical CP: suspect GI 2. GERD exacerbation 3. Hx of PSVT with past cardioversion: EKG SR no arrhythmias overnight 4. Hx of DM2: unmedicated, FBG 98, likely controlled 5. Acanthoses nigricans 6. Tobaccoism 7. Anxiety/depression: controlled with paxil and xanax 8. Asthma: controlled, PRN inhalers at home. Recommendations 1. Continue home BB 2. Diet modification for GERD prevention and start on PPI 3. Baseline TTE, check TSH and A1C, lipids. 4. Smoking cessation 5. Establish follow up in our office. 6. May DC from cardiac standpoint if TTE is unremarkable. CHESTER MURRY APRN May 03, 2019 09:13
[2019-05-03 09:34] LABS: CHOLESTEROL/HDL RATIO 4.5
--- NOTE | 2019-05-03 11:28 | NUR ---
SS following for discharge planning. SS reviewed pt chart. Pt is from home and is currently on room air. No discharge needs noted at this time. SS will continue to follow for discharge planning.
[2019-05-03] MEDS ORDERED: ALBUTEROL SULFATE 2.5 MG/3 ML NEBU. INH PRN (11:45)
[2019-05-03] MEDS ORDERED: ALPRAZolam 0.25 MG TABLET PO PRN (11:45)
[2019-05-03 12:04] VITALS: BP 140/89
--- NOTE | 2019-05-03 12:13 | CARD ---
MR#: [id number] Date of Study: 05/03/2019 Ordering Physician: CHESTER MURRY, Referring Physician: CHESTER MURRY Tech: No Prieto RDCS APPROVED REPORT EXAM: Two-dimensional and M-mode echocardiogram with Doppler and color Doppler. Other Information Quality : AverageHR: 72bpm Rhythm : NSR INDICATION Chest Pain 2D DIMENSIONS RVDd3.2 (2.9-3.5cm)Left Atrium(2D)3.5 (1.6-4.0cm) IVSd1.0 (0.7-1.1cm)Aortic Root(2D)3.1 (2.0-3.7cm) LVDd4.8 (3.9-5.9cm)LVOT Diameter1.9 (1.8-2.4cm) PWd1.1 (0.7-1.1cm)LVDs3.1 (2.5-4.0cm) FS (%) 35.0 %SV68.9 ml LVEF(%)64.2 (>50%) M-Mode DIMENSIONS Left Atrium(MM)3.98 (2.5-4.0cm)Aortic Root2.90 (2.2-3.7cm) Aortic Valve AoV Peak Rowdy.149.3cm/sAoV VTI30.3cm AO Peak GR.8.9mmHgLVOT Peak Rowdy.113.2cm/s AO Mean GR.4mmHgAVA (VMAX)2.24cm2 ARTHUR (VTI)2.30cm2 Mitral Valve MV E Rikeongm01.2cm/sMV DECEL BQCB268kt MV A Sjejpkcj78.3cm/sE/A Ratio1.2 Pulmonary Valve PV Peak Ozfikhpo31.3cm/s Tricuspid Valve TR P. Rkpcajbn365qr/sRAP MBWUKPQT8jbGl TR Peak Gr.21xpBsZJUQ24bvVd Pulmonary Vein S1 Mwctrtbx57.8cm/sD2 Rpsmbfqe78.5cm/s PVa ieefasmu42yvut LEFT VENTRICLE The left ventricle is normal size. There is normal left ventricular wall thickness. The left ventricu lar systolic function is normal and the ejection fraction is within normal range. The Ejection Fracti on is 60-65%. There is normal LV segmental wall motion. The left ventricular diastolic function and f illing is normal for age. RIGHT VENTRICLE The right ventricle is normal size. There is normal right ventricular wall thickness. The right ventr icular systolic function is normal. ATRIA The left atrium size is normal. The right atrium size is normal. The interatrial septum is intact wit h no evidence for an atrial septal defect or patent foramen ovale as noted on 2-D or Doppler imaging. AORTIC VALVE The aortic valve is normal in structure and function. The aortic valve is trileaflet. Doppler and Col or Flow revealed no significant aortic regurgitation. There is no significant aortic valvular stenosi s. There is no aortic valvular vegetation. MITRAL VALVE The mitral valve is normal in structure and function. There is no evidence of mitral valve prolapse. There is no mitral valve stenosis. Doppler and Color-flow revealed mild mitral regurgitation. TRICUSPID VALVE The tricuspid valve is normal in structure and function. Doppler and Color Flow revealed trace tricus pid regurgitation. The PA pressure was estimated at 24 mmHg. There is no tricuspid valve prolapse or vegetation. There is no tricuspid valve stenosis. PULMONIC VALVE The pulmonic valve is not well visualized. GREAT VESSELS The aortic root is normal in size. The ascending aorta is normal in size. The IVC is normal in size a nd collapses >50% with inspiration. PERICARDIAL EFFUSION There is no evidence of significant pericardial effusion. Critical Notification Critical Value: No <Conclusion> The left ventricle is normal size. The left ventricular systolic function is normal and the ejection fraction is within normal range. The Ejection Fraction is 60-65%. There is no significant aortic valvular stenosis. Doppler and Color Flow revealed no significant aortic regurgitation. Doppler and Color-flow revealed mild mitral regurgitation. Doppler and Color Flow revealed trace tricuspid regurgitation. The PA pressure was estimated at 24 mmHg. Signed by : Mark Orta MD Electronically Approved : 05/03/2019 12:13:14
[2019-05-03 14:30] VITALS: BP 123/77
[2019-05-03] MEDS ORDERED: PANT40TA77 PO (14:45)
[2019-05-03] MEDS ORDERED: ATOR20TA58 PO (14:45)
--- NOTE | 2019-05-03 15:00 | PDOC ---
Provider Note Provider Note combined H&P and DC dictated # [id number] Elvin FRIEDMAN MD May 03, 2019 15:00
--- NOTE | 2019-05-03 15:13 | NUR ---
Patient discharged to home. Discharge instructions given and verbalized understanding. PIV and heart monitor removed. Escorted patient to front entrance per wheelchair into a private vehicle.
--- NOTE | 2019-05-03 16:37 | HP ---
ADMIT DATE: 05/03/2019 HISTORY AND PHYSICAL AND DISCHARGE SUMMARY ADMISSION DIAGNOSIS: Chest pain. DISCHARGE DIAGNOSIS: Chest pain secondary to gastroesophageal reflux disease. HISTORY OF PRESENT ILLNESS: This 48-year-old -[place] female with underlying hypertension, history of asthma, depression and anxiety, who has been having chest pain for several. Couple of days ago, she presented to [facility] because of it. They started to see her, but it was quite busy and she was in the [place] and there was a lot of noise and various other stressors and she left without being completely evaluated. She called last evening because her pains were persisting. She is advised to come to the Emergency Room, which she did and she was seen and evaluated. Her initial EKG and troponin was normal. She was admitted overnight. Serial enzymes have been unremarkable. Cardiac consultation has been done without any interventions. Planned echocardiogram was done showing a normal ejection fraction, normal cardiac structures and valves and normal wall motion. PAST MEDICAL HISTORY: Significant for asthma, diet controlled diabetes, hypertension, kidney stone, and SVT, which is required prior cardioversion. PAST SURGICAL HISTORY: Include hysterectomy, tubal ligation, ureteral stent, and cryotherapy. FAMILY HISTORY: Diabetes and heart disease. SOCIAL HISTORY: Occasional alcohol. No drug use. Tobacco use is positive for less than a pack a day for nearly 30 years. She is . Her aunt is ill and in the hospital in [place], she has been stressed about that and wanting to visit. ALLERGIES: She has no known drug allergies. HOME MEDICATIONS: Include metoprolol XL 25 mg b.i.d., paroxetine 30 mg daily, alprazolam 1 t.i.d., and albuterol inhaler p.r.n. REVIEW OF SYSTEMS: ENT: No sinus or allergy symptoms. CONSTITUTIONAL: No fever or chills. PULMONARY: Negative for cough or recent wheezing. She has not needed an inhaler recently. CARDIAC: As above. GASTROINTESTINAL: She denies any bloating, nausea, vomiting, change in bowels or dyspepsia. GENITOURINARY: No dysuria. No symptoms of kidney stones. PSYCHIATRIC: Positive for anxiety. MUSCULOSKELETAL: No acute joint pain. SKIN: No lesions. NEUROLOGIC: No tremor. PSYCHIATRIC: Normal affect. PHYSICAL EXAMINATION: VITAL SIGNS: She initially mildly hypertensive at 153/91, heart rate has been normal sinus rhythm on monitor. Respiratory rate is normal. Room air oxygen saturations are normal, afebrile. GENERAL: She is awake, alert and quite comfortable. HEENT: Unremarkable. NECK: Supple, no JVD. HEART: Regular rate and rhythm, normal S1, S2. No murmur. LUNGS: Clear to auscultation. ABDOMEN: Soft, nondistended, and nontender. There is no right upper quadrant tenderness. Negative Wilkerson sign. There is no epigastric pain. There is no hepatosplenomegaly on palpation. SKIN: Color and turgor are normal. MUSCULOSKELETAL: With normal range of motions and no limitations. PSYCHIATRIC: She is a bit anxious and worried, but there is no tremor. LABORATORY DATA: Sodium 143, potassium of 3.5, BUN of 13, creatinine 0.8, and glucose of 87 and 111. Troponin less than 0.017. LDL is elevated at 122. Non-HDL cholesterol is elevated at 142. Her total cholesterol was 183 with an HDL of 41, triglycerides of 102, TSH is normal at 1.487. Liver enzymes are normal. ProBNP was 18. Urinalysis is unremarkable. Toxicology is positive for opiates, she does take them intermittently and tried them for her chest pain prior to arrival. IMAGING STUDIES: Chest x-ray shows no acute abnormality. EKG without acute abnormalities. HOSPITAL COURSE: She has been seen by Cardiology and cleared for discharge with outpatient followup. She has not had any chest pain since admission. Her exam has remained stable since admission without any findings. ASSESSMENT: Chest pain, noncardiac favor and gastroesophageal reflux disease. PLAN: She will be discharged home on pantoprazole 40 mg 1 daily, #31 refill. She will also be started on atorvastatin for hyperlipidemia 20 mg 1 at bedtime, #93 refills. She will continue albuterol p.r.n., alprazolam 0.25 t.i.d. p.r.n., metoprolol XL 25 two daily and paroxetine 30 mg daily. DIET: Will be bland cardiac. ACTIVITY: As tolerated. She is cleared to return to work and flight to [place] later this week. She will follow up in the office in 1-2 weeks and follow up with Cardiology in the same timeframe. Elvin FRIEDMAN MD DR: LATRICIA/bina JOB#: [id number] / [id number]
[2019-05-03] MEDS ORDERED: ATORVASTATIN CALCIUM 20 MG TABLET PO SCH (21:00)
[2019-05-04 00:10] LABS: HEMOGLOBIN A1C 6.3 % (4.8-5.6)
[2019-05-04] MEDS ORDERED: PANTOPRAZOLE 40 MG TABLET.DR. PO SCH (07:30)
== END 2019-05-03 15:30 | disposition home or self-care (01) | DRG 392 ==
LOC: ER 17:22 → 2 NORTH 20:00
PROVIDERS: ADMIT Family Medicine; ATTEND Family Medicine
DX: K21.9 Gastro-esophageal reflux disease without esophagitis (principal); R07.89 Other chest pain; E11.9 Type 2 diabetes mellitus without complications; F17.210 Nicotine dependence, cigarettes, uncomplicated; F32.9 Major depressive disorder, single episode, unspecified; I10 Essential (primary) hypertension; F41.9 Anxiety disorder, unspecified; J45.909 Unspecified asthma, uncomplicated; Z82.41 Family history of sudden cardiac death; Z82.49 Family history of ischemic heart disease and other diseases of the circulatory system; Z87.442 Personal history of urinary calculi; Z90.710 Acquired absence of both cervix and uterus; Z83.3 Family history of diabetes mellitus
CPT/HCPCS: 36415; 71045; 80048; 80053; 80061; 80307; 81001; 82553; 82962; 83036; 83735; 83880; 84443; 84484; 85025; 85610; 93005; 93306; 94760; 96361; 96374; 96375; 96376; J2270; J2405; J7030; Q0163; 99285-25; G0378

== ENCOUNTER 2020-01-31 06:44 | Emergency (ER) | payer MEDICAID, OTHER ==
[~2020-01-31] VITALS: Ht 177.8 cm; Wt 99.0 kg
[~2020-01-31 06:44] MED LIST changes: +ATOR20TA58 PO; +METO25TA4 PO; +PANT40TA77 PO; +PARO30TA3 PO
[2020-01-31] MEDS ORDERED: IV NORMAL SALINE 1000ML BAG 1,000 ML IV SCH (07:12)
[2020-01-31] MEDS ORDERED: ONDANSETRON PF 4 MG/2 ML VIAL. IVP ONE (07:15)
--- NOTE | 2020-01-31 07:19 | PHYS DOC ---
Past Medical History Past Medical History: Asthma, Diabetes-Type II, Hypertension, Kidney Stone, Other Additional Past Medical Histor: SVT Past Surgical History: Hysterectomy, Tubal ligation, Other Additional Past Surgical Histo: kideny stent placed & removed, cryotherapy,CARDIOVERSION Smoking Status: Current Every Day Smoker Alcohol Use: Occasionally Drug Use: None General Adult EDM: Chief Complaint: BLOOD SUGAR PROBLEM HPI: HPI: 49-year-old female with history of diabetes mellitus, who presents for evaluation of hyperglycemia. This is in the setting of a 2 to 3-day history of feeling generally unwell with associated nausea, fatigue, polyuria and polydipsia. The patient has been noncompliant with her metformin for the last 8 months or so. Her fingersticks at home have been running in the high 400s. No abdominal pain or lightheadedness. No URI symptoms. No aggravating or alleviating factors. Review of Systems: Review of Systems: Gen: No fever, chills. Eyes: No blurred vision, diplopia. ENT: No nasal congestion, sore throat. CV: No CP, palpitations. Resp. No SOB, cough. GI: No abd pain, vomiting. Reports nausea. : No dysuria, hematuria. Neuro: No WALTER, dizziness, weakness. MSK: No myalgia, arthralgia, back pain. Skin: No acute rash or lesion. Endocrine: Reports hyperglycemia, polyuria, polydipsia. Heart Score: Risk Factors: Risk Factors: DM, Current or recent (<one month) smoker, HTN, HLP, family history of CAD, obesity. Risk Scores: Score 0 - 3: 2.5% MACE over next 6 weeks - Discharge Home Score 4 - 6: 20.3% MACE over next 6 weeks - Admit for Clinical Observation Score 7 - 10: 72.7% MACE over next 6 weeks - Early Invasive Strategies Allergies: Allergies: Allergies Coded Allergies Type Severity Reaction Last Updated Verified No Known Drug Allergies 05/30/15 No Physical Exam: PE: Gen: NAD. Head: NC/AT. Eyes: No scleral icterus. No conjunctival injection. ENT: MM dry. Posterior OP clear. Neck: Supple. NT. CV: RRR. Peripheral pulses intact. Resp: CTAB. Abd: Soft. NT. ND. MSK: No peripheral cyanosis. No edema. Neuro: Awake and alert. Skin. Warm. Dry. Psych: Appropriate mood & affect. EKG: EKG: EKG at 0744. NSR. HR 78. Nml intervals. No STEMI. Interp by me. Radiology/Procedures: Radiology/Procedures: [] Course & Med Decision Making: Course & Med Decision Making Pertinent Labs and Imaging studies reviewed. (See chart for details) In summary, 49F with NIDDM, noncompliant with metformin 1000 BID p/w nausea, polydipsia, polyuria and hyperglycemia. No abdominal pain. Hemodynamically stable. Unremarkable examination. Lab work is largely unremarkable as well with the exception of hyperglycemia at 392. Normal gap. Negative acetone. Received 2 IV fluid boluses. Advised to resume her metformin, with additional prescription written. Outpatient follow-up. Return precautions given. Pedro Disclaimer: Pedro Disclaimer: This electronic medical record was generated, in whole or in part, using a voice recognition dictation system. Departure Departure Impression: Primary Impression: Hyperglycemia due to diabetes mellitus Disposition: HOME, SELF-CARE Condition: STABLE Referrals: Elvin FRIEDMAN MD (PCP) Patient Instructions: Hyperglycemia, Tjta-zd-Nsua Scripts Metformin Hcl (METFORMIN HCL) 500 Mg Tablet 1000 MG PO BIDWMEALS for ANTI-DIABETIC, #60 TAB 0 Refills Prov: ZAIN KELLEY DO 01/31/20 Justicifation of Admission Dx: Justifications for Admission: Justification of Admission Dx: N/A ZAIN KELLEY DO Jan 31, 2020 07:19
[2020-01-31 07:49] LABS: BASO # 0.1 x10^3/uL (0.0-0.2); BASO % 1 % (0-3); EOS # 0.2 x10^3/uL (0.0-0.7); EOS % 2 % (0-3); HEMATOCRIT 42.9 % (36.0-47.0); HEMOGLOBIN 14.7 g/dL (12.0-15.5); LYMPH # 2.6 x10^3/uL (1.0-4.8); LYMPH % 30 % (24-48); MEAN CORPUSCULAR HEMOGLOBIN 32 pg (25-35); MEAN CORPUSCULAR HGB CONC 34 g/dL (31-37); MEAN CORPUSCULAR VOLUME 94 fL (79-100); MONO # 0.7 x10^3/uL (0.0-1.1); MONO % 8 % (0-9); NEUT # 4.9 x10^3/uL (1.8-7.7); NEUT % 59 % (31-73); PLATELET COUNT 209 x10^3/uL (140-400); RED BLOOD COUNT 4.58 x10^6/uL (3.50-5.40); RED CELL DISTRIBUTION WIDTH 14.4 % (11.5-14.5); WHITE BLOOD COUNT 8.4 x10^3/uL (4.0-11.0)
[2020-01-31 07:51] LABS: BILIRUBIN,URINE NEGATIVE (NEG); CLARITY,URINE CLEAR; COLOR,URINE YELLOW; NITRITE,URINE NEGATIVE (NEG); PH,URINE 5.5 (<5.0-8.0); PROTEIN,URINE NEGATIVE (NEG-TRACE); UROBILINOGEN,URINE 0.2 mg/dL (0.2 mg/dL)
[2020-01-31 07:55] LABS: CALCIUM 8.3 mg/dL (8.5-10.1); CREATININE 0.9 mg/dL (0.6-1.0); GFR 80.9; POTASSIUM 3.6 mmol/L (3.5-5.1)
[2020-01-31 07:59] LABS: BACTERIA,URINE 0 /HPF (0-FEW); RBC,URINE 0 /HPF (0-2); SQUAMOUS EPITHELIAL CELL,UR FEW /LPF; WBC,URINE OCC /HPF (0-4); YEAST,URINE PRESENT /HPF
[2020-01-31 08:02] LABS: ALBUMIN 3.5 g/dL (3.4-5.0); MAGNESIUM 1.6 mg/dL (1.8-2.4); TOTAL BILIRUBIN 0.4 mg/dL (0.2-1.0)
[2020-01-31] MEDS ORDERED: METF500T16 PO (08:14)
--- NOTE | 2020-01-31 08:18 | EKG ---
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
[2020-01-31] MEDS ORDERED: ONDA4TAB12 PO (08:25)
[2020-01-31] MEDS ORDERED: IV RINGERS,LACTATED 1000ML 1,000 ML IV ONE (08:30)
[2020-01-31 09:10] VITALS: BP 113/79
== END 2020-01-31 09:20 | disposition home or self-care (01) ==
LOC: ER 06:44
DX: E11.65 Type 2 diabetes mellitus with hyperglycemia (principal); R53.83 Other fatigue; J45.909 Unspecified asthma, uncomplicated; E11.9 Type 2 diabetes mellitus without complications; I10 Essential (primary) hypertension; Z87.442 Personal history of urinary calculi; Z98.51 Tubal ligation status; Z90.710 Acquired absence of both cervix and uterus; Z96.0 Presence of urogenital implants; F17.200 Nicotine dependence, unspecified, uncomplicated
CPT/HCPCS: 36415; 80053; 81001; 82010; 83690; 83735; 85025; 93005; 96361; 96374; 99285; J2405; J7030; J7120

== ENCOUNTER 2020-03-18 12:09 | Emergency (ER) | payer OTHER, MEDICAID ==
[~2020-03-18] VITALS: Ht 175.3 cm; Wt 98.0 kg
[~2020-03-18 12:09] MED LIST changes: +METF500T16 PO; +ONDA4TAB12 PO
--- NOTE | 2020-03-18 13:37 | RAD ---
Single AP view of the chest. Comparison: 05/02/2019. Indication: Shortness of air and cough for a week Findings: The heart is not enlarged. There is no pneumothorax or effusion. No air space or interstitial disease. Impression: 1. No acute cardiopulmonary process. Electronically signed by: Hector Weir MD (03/18/2020 1:34 PM) [id number]
[2020-03-18 13:38] LABS: BASO # 0.1 x10^3/uL (0.0-0.2); BASO % 1 % (0-3); EOS # 0.2 x10^3/uL (0.0-0.7); EOS % 3 % (0-3); HEMATOCRIT 43.1 % (36.0-47.0); HEMOGLOBIN 14.8 g/dL (12.0-15.5); LYMPH # 3.3 x10^3/uL (1.0-4.8); LYMPH % 42 % (24-48); MEAN CORPUSCULAR HEMOGLOBIN 32 pg (25-35); MEAN CORPUSCULAR HGB CONC 34 g/dL (31-37); MEAN CORPUSCULAR VOLUME 94 fL (79-100); MONO # 0.5 x10^3/uL (0.0-1.1); MONO % 6 % (0-9); NEUT # 3.8 x10^3/uL (1.8-7.7); NEUT % 49 % (31-73); PLATELET COUNT 241 x10^3/uL (140-400); RED BLOOD COUNT 4.58 x10^6/uL (3.50-5.40); RED CELL DISTRIBUTION WIDTH 13.8 % (11.5-14.5); WHITE BLOOD COUNT 7.9 x10^3/uL (4.0-11.0)
[2020-03-18 13:46] LABS: CALCIUM 8.7 mg/dL (8.5-10.1); CREATININE 0.8 mg/dL (0.6-1.0); GFR 92.6; POTASSIUM 3.7 mmol/L (3.5-5.1)
[2020-03-18 13:52] LABS: ALBUMIN 3.5 g/dL (3.4-5.0); TOTAL BILIRUBIN 0.7 mg/dL (0.2-1.0); TOTAL PROTEIN 7.1 g/dL (6.4-8.2)
[2020-03-18 14:34] VITALS: BP 134/83
--- NOTE | 2020-03-18 15:10 | PHYS DOC ---
Past Medical History Past Medical History: Asthma, Bronchitis, Diabetes-Type II, Hypertension, Kidney Stone, Other Additional Past Medical Histor: SVT Past Surgical History: Hysterectomy, Tubal ligation, Other Additional Past Surgical Histo: kideny stent placed & removed, cryotherapy,CARDIOVERSION Smoking Status: Current Every Day Smoker Alcohol Use: Rarely Drug Use: None General Adult EDM: Chief Complaint: SHORTNESS OF BREATH HPI: HPI: Patient is a 49 year old female who presented to ER today for evaluation of nonproductive cough, trouble breathing, chest pain off and on for several weeks. Patient says she had asthma, she denies any exposure to anybody who tested positive for COVID-19. Patient went to see her family doctor and was tested 24 COVID-19 and all came back negative. Patient continues to have cough, her doctor put her on a Z-Pedro and cough medication, patient said when the cough medication urinalysis started coughing again so she came back here for evaluation. Review of Systems: Review of Systems: Constitutional: Denies fever or chills. [] Eyes: Denies change in visual acuity. [] HENT: Positive for nasal congestion, no sore throat Respiratory: Positive for cough , shortness of breath. [] Cardiovascular: Positive for chest pain, no edema. [] GI: Denies abdominal pain, nausea, vomiting, bloody stools or diarrhea. [] : Denies dysuria. [] Musculoskeletal: Denies back pain or joint pain. [] Integument: Denies rash. [] Neurologic: Denies headache, focal weakness or sensory changes. [] Endocrine: Denies polyuria or polydipsia. [] Lymphatic: Denies swollen glands. [] Psychiatric: Denies depression or anxiety. [] Heart Score: Risk Factors: Risk Factors: DM, Current or recent (<one month) smoker, HTN, HLP, family history of CAD, obesity. Risk Scores: Score 0 - 3: 2.5% MACE over next 6 weeks - Discharge Home Score 4 - 6: 20.3% MACE over next 6 weeks - Admit for Clinical Observation Score 7 - 10: 72.7% MACE over next 6 weeks - Early Invasive Strategies Allergies: Allergies: Allergies Coded Allergies Type Severity Reaction Last Updated Verified No Known Drug Allergies 05/30/15 No Physical Exam: PE: Constitutional: Well developed, well nourished, no acute distress, non-toxic appearance. [] HENT: Normocephalic, atraumatic, bilateral external ears normal, nose normal. [] Eyes: PERRLA, EOMI, conjunctiva normal, no discharge. [] Neurologic: Alert and oriented X 3, normal motor function, normal sensory function, no focal deficits noted. [] Psychologic: Affect normal, judgement normal, mood normal. [] Current Patient Data: Labs: Laboratory Tests Test 03/18/20 12:47 White Blood Count 7.9 x10^3/uL (4.0-11.0) Red Blood Count 4.58 x10^6/uL (3.50-5.40) Hemoglobin 14.8 g/dL (12.0-15.5) Hematocrit 43.1 % (36.0-47.0) Mean Corpuscular Volume 94 fL (79-100) Mean Corpuscular Hemoglobin 32 pg (25-35) Mean Corpuscular Hemoglobin Concent 34 g/dL (31-37) Red Cell Distribution Width 13.8 % (11.5-14.5) Platelet Count 241 x10^3/uL (140-400) Neutrophils (%) (Auto) 49 % (31-73) Lymphocytes (%) (Auto) 42 % (24-48) Monocytes (%) (Auto) 6 % (0-9) Eosinophils (%) (Auto) 3 % (0-3) Basophils (%) (Auto) 1 % (0-3) Neutrophils # (Auto) 3.8 x10^3/uL (1.8-7.7) Lymphocytes # (Auto) 3.3 x10^3/uL (1.0-4.8) Monocytes # (Auto) 0.5 x10^3/uL (0.0-1.1) Eosinophils # (Auto) 0.2 x10^3/uL (0.0-0.7) Basophils # (Auto) 0.1 x10^3/uL (0.0-0.2) Sodium Level 139 mmol/L (136-145) Potassium Level 3.7 mmol/L (3.5-5.1) Chloride Level 104 mmol/L (98-107) Carbon Dioxide Level 27 mmol/L (21-32) Anion Gap 8 (6-14) Blood Urea Nitrogen 7 mg/dL (7-20) Creatinine 0.8 mg/dL (0.6-1.0) Estimated GFR (Cockcroft-Gault) 92.6 BUN/Creatinine Ratio 9 (6-20) Glucose Level 102 mg/dL (70-99) H Calcium Level 8.7 mg/dL (8.5-10.1) Total Bilirubin 0.7 mg/dL (0.2-1.0) Aspartate Amino Transferase (AST) 12 U/L (15-37) L Alanine Aminotransferase (ALT) 14 U/L (14-59) Alkaline Phosphatase 101 U/L (46-116) Total Protein 7.1 g/dL (6.4-8.2) Albumin 3.5 g/dL (3.4-5.0) Albumin/Globulin Ratio 1.0 (1.0-1.7) Laboratory Tests 03/18/20 12:47 Laboratory Tests 03/18/20 12:47 Vital Signs: Vital Signs Date Time Temp Pulse Resp B/P (MAP) Pulse Ox O2 Delivery O2 Flow Rate FiO2 03/18/20 13:34 65 120/75 (90) 100 Room Air 03/18/20 12:25 98.7 18 98.7 EKG: EKG: EKG was done at 1233 rate was 71 bpm, normal sinus rhythm, no ST segment elevation. Radiology/Procedures: Radiology/Procedures: [][facility] [address] [place] [address] IMAGING REPORT Signed PATIENT: CALIXTO GENTILE ACCOUNT: [id number] : 1970 LOCATION: ER AGE: 49 SEX: F EXAM STATUS: REG ER ORD. PHYSICIAN: KALI GRIGGS DO REASON: soa, cough for a week PROCEDURE: CHEST AP ONLY Single AP view of the chest. Comparison: 05/02/2019. Indication: Shortness of air and cough for a week Findings: The heart is not enlarged. There is no pneumothorax or effusion. No air space or interstitial disease. Impression: 1. No acute cardiopulmonary process. Electronically signed by: Hector Weir MD (03/18/2020 1:34 PM) [id number] DICTATED and SIGNED BY: HECTOR WEIR MD DATE: 03/18/20 1334 Course & Med Decision Making: Course & Med Decision Making Pertinent Labs and Imaging studies reviewed. (See chart for details) Patient is a 49-year-old female who was evaluated in the ER today due to nonproductive cough over 2 weeks. Patient has been evaluated by her family doctor already, has prescribed cough medication and Z-Pedro. Patient had finished the medication but continued to cough. Patient stated that she was tested negative for COVID-19 twice already, she refused to have COVID-19 test again. This physician was in the middle of evaluating this patient when another patient next door became very sick, required immediate attention. This physician left patient room with intention of coming back to finish this exam however when this physician came back to room, patient wanted to leave [place] because she has been calling for help but nobody helping her. The physical exam was not completed on this patient, she left AMA. Pedro Disclaimer: Pedro Disclaimer: This electronic medical record was generated, in whole or in part, using a voice recognition dictation system. Departure Departure Impression: Primary Impression: Acute bronchitis Disposition: AGAINST MEDICAL ADVICE Condition: STABLE Referrals: Elvin FRIEDMAN MD (PCP) Justicifation of Admission Dx: Justifications for Admission: Justification of Admission Dx: N/A KALI GRIGGS DO Mar 18, 2020 15:10
--- NOTE | 2020-03-19 03:26 | EKG ---
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
== END 2020-03-18 14:54 | disposition left against medical advice (07) ==
LOC: ER 12:09
DX: J20.9 Acute bronchitis, unspecified (principal); R07.89 Other chest pain; R05 Cough; R06.02 Shortness of breath; J45.909 Unspecified asthma, uncomplicated; E11.9 Type 2 diabetes mellitus without complications; F17.200 Nicotine dependence, unspecified, uncomplicated; Z90.710 Acquired absence of both cervix and uterus; Z87.442 Personal history of urinary calculi; Z98.890 Other specified postprocedural states; Z98.51 Tubal ligation status
CPT/HCPCS: 36415; 71045; 80053; 85025; 93005; 99285

== ENCOUNTER → 2020-04-23 | Outpatient (CLI) | payer OTHER, MEDICAID ==
--- NOTE | 2020-04-23 15:25 | KCIC ---
AP and Lateral Views of the Chest 04/23/2020 12:00 AM Indication: Reason: COUGH / Spl. Instructions: Negative covid test, smoker, asthma, COPD, dry cough. / History: Comparison: Chest radiograph March 18, 2020 Findings: There is no focal consolidation or infiltrate identified. Mild linear discoid atelectasis noted in the lingula. Heart size is normal. There is no evidence of pneumothorax or pleural effusion. No acute osseous abnormalities are identified. Impression: Mild lingular discoid atelectasis, otherwise no evidence of acute cardiopulmonary process. Electronically signed by: Kimo Garvin MD (04/23/2020 3:22 PM) [id number]
== END | disposition home or self-care (01) ==
LOC: KCIC 12:36
PROVIDERS: ATTEND Family Medicine
DX: J98.11 Atelectasis (principal); R05 Cough
CPT/HCPCS: 71046

== ENCOUNTER 2020-05-25 12:43 | Emergency (ER) | payer OTHER, MEDICAID ==
[~2020-05-25] VITALS: Ht 175.3 cm; Wt 97.2 kg
--- NOTE | 2020-05-25 13:50 | PHYS DOC ---
Past Medical History Past Medical History: Asthma, Bronchitis, COPD, Diabetes-Type II, Hypertension, Kidney Stone, Other Additional Past Medical Histor: SVT Past Surgical History: Hysterectomy, Tubal ligation, Other Additional Past Surgical Histo: kideny stent placed & removed, cryot herapy,CARDIOVERSION x2 Smoking Status: Current Every Day Smoker Additional Information: 0.5/ppd Alcohol Use: Rarely Drug Use: None General Adult EDM: Chief Complaint: LOWER EXTREMITY SWELLING HPI: HPI: History was obtained from the patient. Patient is a 49-year-old female with a history of asthma, COPD, SVT who presents with chief complaint of right lower extremity pain. Patient states she has had increased pain throughout the day. She notes no swelling. She notes that it is a burning tingling sensation over the posterior aspect of her right calf. Denies any history of blood clot in leg s or lungs. She does note shortness of breath but states this is chronic for her. She states she has been evaluated by pulmonology and has had pulmonary function tests. She states she does have an outpatient CAT scan of her chest pending and has follow-up with pulmonology in 2 weeks. She does note that she uses Flovent daily for asthma. She states she does not feel wheezy at this time. Denies any chest pain. Denies any change to her shortness of breath today. Denies trauma or falls. Denies cough or fever. Denies history of coronavirus. Denies any syncope. Denies trauma to the right knee. Denies any knee redness or fever. Denies IV drug use She does note she is currently on day 2 of a steroid burst provided by her primary care physician. No other complaints. Review of Systems: Review of Systems: Constitutional: Denies fever or chills. [] Eyes: Denies change in visual acuity. [] HENT: Denies nasal congestion or sore throat. [] Respiratory: Positive shortness of breath Cardiovascular: Denies chest pain or edema. [] GI: Denies abdominal pain, nausea, vomiting, bloody stools or diarrhea. [] : Denies dysuria. [] Musculoskeletal: Positive for right lower extremity pain Integument: Denies rash. [] Neurologic: Denies headache, focal weakness or sensory changes. [] Endocrine: Denies polyuria or polydipsia. [] Lymphatic: Denies swollen glands. [] Psychiatric: Denies depression or anxiety. [] Heart Score: Risk Factors: Risk Factors: DM, Current or recent (<one month) smoker, HTN, HLP, family history of CAD, obesity. Risk Scores: Score 0 - 3: 2.5% MACE over next 6 weeks - Discharge Home Score 4 - 6: 20.3% MACE over next 6 weeks - Admit for Clinical Observation Score 7 - 10: 72.7% MACE over next 6 weeks - Early Invasive Strategies Allergies: Allergies: Allergies Coded Allergies Type Severity Reaction Last Updated Verified No Known Drug Allergies 05/30/15 No Physical Exam: PE: Constitutional: Well developed, well nourished, no acute distress, non-toxic appearance. [] HENT: Normocephalic, atraumatic, bilateral external ears normal, oropharynx moist, no oral exudates, nose normal. [] Eyes: PERRLA, EOMI, conjunctiva normal, no discharge. [] Neck: Normal range of motion, no tenderness, supple, no stridor. [] Cardiovascular:Heart rate regular rhythm, no murmur [] Lungs & Thorax: Bilateral breath sounds clear to auscultation [] Abdomen: soft, no tenderness, no masses, no pulsatile masses. [] Skin: Warm, dry, no erythema, no rash. [] Back: No tenderness, no CVA tenderness. [] Extremities: R Knee Erythema not present. Warmth not present. Effusion not present. Anterior drawer is intact. Posterior drawer is intact. Varus testing is intact. Valgus testing is intact. Knee extension is intact. DNVI (DP pulse 2+, plantar and dorsiflexion intact, light touch intact. Neurologic: Alert and oriented X 3, normal motor function, normal sensory function, no focal deficits noted. [] Psychologic: Affect normal, judgement normal, mood normal. [] Current Patient Data: Labs: Laboratory Tests Test 05/25/20 13:28 05/25/20 14:15 Bedside Urine HCG, Qualitative Hcg negative White Blood Count 8.3 x10^3/uL Red Blood Count 4.43 x10^6/uL Hemoglobin 13.8 g/dL Hematocrit 40.6 % Mean Corpuscular Volume 92 fL Mean Corpuscular Hemoglobin 31 pg Mean Corpuscular Hemoglobin Concent 34 g/dL Red Cell Distribution Width 13.8 % Platelet Count 216 x10^3/uL Neutrophils (%) (Auto) 50 % Lymphocytes (%) (Auto) 39 % Monocytes (%) (Auto) 6 % Eosinophils (%) (Auto) 4 % Basophils (%) (Auto) 1 % Neutrophils # (Auto) 4.2 x10^3/uL Lymphocytes # (Auto) 3.2 x10^3/uL Monocytes # (Auto) 0.5 x10^3/uL Eosinophils # (Auto) 0.3 x10^3/uL Basophils # (Auto) 0.1 x10^3/uL Sodium Level 145 mmol/L Potassium Level 4.0 mmol/L Chloride Level 109 mmol/L Carbon Dioxide Level 27 mmol/L Anion Gap 9 Blood Urea Nitrogen 11 mg/dL Creatinine 0.9 mg/dL Estimated GFR (Cockcroft-Gault) 80.9 BUN/Creatinine Ratio 12 Glucose Level 157 mg/dL Calcium Level 8.5 mg/dL Total Bilirubin 0.4 mg/dL Aspartate Amino Transf (AST/SGOT) 11 U/L Alanine Aminotransferase (ALT/SGPT) 12 U/L Alkaline Phosphatase 98 U/L Troponin I Quantitative < 0.017 ng/mL SF-Btu-B-Type Natriuretic Peptide 17 pg/mL Total Protein 6.1 g/dL Albumin 3.2 g/dL Albumin/Globulin Ratio 1.1 Current Medications Medications (Trade) Dose Ordered Sig/Laila Route PRN Reason Start Time Stop Time Status Last Admin Dose Admin Acetaminophen/ Hydrocodone Bitart (Lortab 5/325) 1 tab 1X ONCE PO 05/25/20 14:30 05/25/20 14:31 DC 05/25/20 14:30 Iohexol (Omnipaque 350 Mg/ml) 100 ml 1X ONCE IV 05/25/20 14:30 05/25/20 14:31 DC Info (CONTRAST GIVEN -- Rx MONITORING) 1 each PRN DAILY PRN MC SEE COMMENTS 05/25/20 14:30 05/27/20 14:29 Laboratory Tests Test 05/25/20 13:28 POC Urine HCG, Qualitative Hcg negative (Negative) Vital Signs: Vital Signs Date Time Temp Pulse Resp B/P (MAP) Pulse Ox O2 Delivery O2 Flow Rate FiO2 05/25/20 13:25 98.7 81 20 120/66 (84) 97 98.7 05/25/20 12:59 Room Air EKG: EKG: [] EKG consistent with normal sinus rhythm. Ventricular rate of 74 bpm. [place] normal. Intervals normal. Nonspecific T wave flattening in lead III. Otherwise normal EKG. Radiology/Procedures: Radiology/Procedures: [facility] [address] [place] [address] IMAGING REPORT Signed PATIENT: CALIXTO GENTILE ACCOUNT: [id number] : 1970 LOCATION: ER AGE: 49 SEX: F EXAM STATUS: REG ER ORD. PHYSICIAN: KERRY ETIENNE DO REASON: SOB. concern for PE PROCEDURE: CT ANGIOGRAPHY CHEST Exam performed: CT pulmonary angiogram of the chest with contrast. Date: 05/25/2020. Comparison:None available Indication: Shortness of breath Technique: Contiguous helical acquisitions are obtained through the chest during intravenous administration of [ 100 ] cc of [ Omnipaque 350 ] . [Sagittal and coronal reformatted images and ] MIP images were obtained and reviewed Findings: The structures at the thoracic inlet including both lobes of the thyroid gland appear normal. Pulmonary arterial opacification is adequate to evaluate for pulmonary embolus. There is no evidence for pulmonary embolism. The heart is normal in size. No pericardial effusion is seen. No mediastinal or hilar lymphadenopathy is seen. There is a 5 mm noncalcified nodule in the apical segment of the right lower lobe (axial image 79/51 there is a linear opacity in the left lung base likely atelectasis. There is no pleural effusion or pneumothorax. Upper abdominal structures appear unremarkable. Osseous structures appear intact. Impression: 1. The study is negative for pulmonary embolism. 2. Tiny 5 mm nodule in the right lower lobe. Etiology of this is unclear. Correlate with patient's risk factors and follow-up according to Fleischner Society recommendation. 3. Left basilar atelectasis. PQRS Compliance Statement: One or more of the following individualized dose reduction techniques were utilized for this examination: 1. Automated exposure control 2. Adjustment of the mA and/or kV according to patient size 3. Use of iterative reconstruction technique Fleischner Society recommendations for pulmonary nodules: In a low risk patient: <4mm- No follow up required. >4-6mm- 12 month follow up, if unchanged, no further follow up. >6-8mm- 6-12 month follow up, then at 18-24 months if no change. >8mm- 3, 9, 24 month follow up or consideration of PET/CT. In a high risk patient: <4mm- 12 month follow up, if unchanged then no further follow up. >4-6mm- 6-12 month follow up, then at 18-24 months if no change. >6-8mm- 3-6 month follow up, then at 9-12 months and 24 months if no change. >8mm- 3, 9, 24 month follow up or consideration of PET/CT. Electronically signed by: Moni Beltre MD (05/25/2020 4:30 PM) [facility] DICTATED and SIGNED BY: MONI BELTRE MD DATE: 05/25/20 1630 [facility] [address] [place] [address] IMAGING REPORT Signed PATIENT: CALIXTO GENTILE ACCOUNT: [id number] : 1970 LOCATION: ER AGE: 49 SEX: F EXAM STATUS: REG ER ORD. PHYSICIAN: KERRY ETIENNE DO REASON: RLE pain PROCEDURE: VENOUS LOWER EXTREMITY RIGHT Right Leg Venous Doppler Ultrasound, 05/25/2020 Indication: Right leg pain for 2 days Comparison: None available Procedure: Real-time grayscale, color flow color duplex Doppler and spectral analysis are obtained with and without compression in the area of the common femoral vein, superficial femoral vein - femoral vein junction, main femoral vein (superficial femoral vein) and popliteal vein. Veins of the proximal calf are also imaged. Findings: There is normal duplex flow, color flow and compressibility of all visualized vein segments. No evidence of deep venous thrombus is present. Impression: Negative venous Doppler of right lower extremity Electronically signed by: Moni Beltre MD (05/25/2020 2:58 PM) [facility] DICTATED and SIGNED BY: MONI BELTRE MD DATE: 05/25/20 6090 [] Course & Med Decision Making: Course & Med Decision Making Pertinent Labs and Imaging studies reviewed. (See chart for details) [] Patient is an overall well-appearing 49-year-old female presents with chief complaint of right leg pain. Initial vital signs unremarkable. She knows she is being worked up for chronic dyspnea. Right lower extremity Doppler negative for DVT. Given her chronic dyspnea troponin and BNP were obtained. These were both negative. CT PE study was also obtained given she was scheduled to have this done as an outpatient. This was negative for pulmonary blood. CK level normal. This time the exact cause of her right lower extremity discomfort is unclear. She did have strong palpable DP pulses bilaterally. No signs of venous blood clot. No signs of infection. Full range of motion of the right lower extremity joint without difficulty. This time patient is appropriate for discharge home. 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 Return precautions were discussed and understood. She is stable for discharge home. Dragon Disclaimer: Dragon Disclaimer: This electronic medical record was generated, in whole or in part, using a voice recognition dictation system. Departure Departure Impression: Primary Impression: Lung nodule Additional Impression: Right leg pain Disposition: 01 HOME, SELF-CARE Condition: STABLE Referrals: Elvin FRIEDMAN MD (PCP) Patient Instructions: Leg Cramps, Pulmonary Nodule Additional Instructions: Please follow-up with your primary care physician in the next 2 to 3 days. KERRY ETIENNE DO May 25, 2020 13:50
[2020-05-25 14:29] LABS: BASO # 0.1 x10^3/uL (0.0-0.2); BASO % 1 % (0-3); EOS # 0.3 x10^3/uL (0.0-0.7); EOS % 4 % (0-3); HEMATOCRIT 40.6 % (36.0-47.0); HEMOGLOBIN 13.8 g/dL (12.0-15.5); LYMPH # 3.2 x10^3/uL (1.0-4.8); LYMPH % 39 % (24-48); MEAN CORPUSCULAR HEMOGLOBIN 31 pg (25-35); MEAN CORPUSCULAR HGB CONC 34 g/dL (31-37); MEAN CORPUSCULAR VOLUME 92 fL (79-100); MONO # 0.5 x10^3/uL (0.0-1.1); MONO % 6 % (0-9); NEUT # 4.2 x10^3/uL (1.8-7.7); NEUT % 50 % (31-73); PLATELET COUNT 216 x10^3/uL (140-400); RED BLOOD COUNT 4.43 x10^6/uL (3.50-5.40); RED CELL DISTRIBUTION WIDTH 13.8 % (11.5-14.5); WHITE BLOOD COUNT 8.3 x10^3/uL (4.0-11.0)
[2020-05-25] MEDS ORDERED: IOHEXOL 350 MG/ML 100 ML VIAL. IV ONE (14:30)
[2020-05-25] MEDS ORDERED: HYDROcodone/APAP 5/325MG 1 TAB TABLET PO ONE (14:30)
[2020-05-25] MEDS ORDERED: CONTRAST GIVEN. MC PRN (14:30)
[2020-05-25 14:35] LABS: CALCIUM 8.5 mg/dL (8.5-10.1); CREATININE 0.9 mg/dL (0.6-1.0); GFR 80.9
[2020-05-25 14:41] LABS: ALBUMIN 3.2 g/dL (3.4-5.0); ALBUMIN/GLOBULIN RATIO 1.1 (1.0-1.7); TOTAL BILIRUBIN 0.4 mg/dL (0.2-1.0); TOTAL PROTEIN 6.1 g/dL (6.4-8.2)
--- NOTE | 2020-05-25 15:01 | RAD ---
Right Leg Venous Doppler Ultrasound, 05/25/2020 Indication: Right leg pain for 2 days Comparison: None available Procedure: Real-time grayscale, color flow color duplex Doppler and spectral analysis are obtained with and without compression in the area of the common femoral vein, superficial femoral vein - femoral vein junction, main femoral vein (superficial femoral vein) and popliteal vein. Veins of the proximal calf are also imaged. Findings: There is normal duplex flow, color flow and compressibility of all visualized vein segments. No evidence of deep venous thrombus is present. Impression: Negative venous Doppler of right lower extremity Electronically signed by: Moni Beltre MD (05/25/2020 2:58 PM) [facility]
--- NOTE | 2020-05-25 15:24 | EKG ---
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
--- NOTE | 2020-05-25 16:32 | RAD ---
Exam performed: CT pulmonary angiogram of the chest with contrast. Date: 05/25/2020. Comparison:None available Indication: Shortness of breath Technique: Contiguous helical acquisitions are obtained through the chest during intravenous administration of [ 100 ] cc of [ Omnipaque 350 ] . [Sagittal and coronal reformatted images and ] MIP images were obtained and reviewed Findings: The structures at the thoracic inlet including both lobes of the thyroid gland appear normal. Pulmonary arterial opacification is adequate to evaluate for pulmonary embolus. There is no evidence for pulmonary embolism. The heart is normal in size. No pericardial effusion is seen. No mediastinal or hilar lymphadenopathy is seen. There is a 5 mm noncalcified nodule in the apical segment of the right lower lobe (axial image 79/51 there is a linear opacity in the left lung base likely atelectasis. There is no pleural effusion or pneumothorax. Upper abdominal structures appear unremarkable. Osseous structures appear intact. Impression: 1. The study is negative for pulmonary embolism. 2. Tiny 5 mm nodule in the right lower lobe. Etiology of this is unclear. Correlate with patient's risk factors and follow-up according to Fleischner Society recommendation. 3. Left basilar atelectasis. PQRS Compliance Statement: One or more of the following individualized dose reduction techniques were utilized for this examination: 1. Automated exposure control 2. Adjustment of the mA and/or kV according to patient size 3. Use of iterative reconstruction technique Fleischner Society recommendations for pulmonary nodules: In a low risk patient: <4mm- No follow up required. >4-6mm- 12 month follow up, if unchanged, no further follow up. >6-8mm- 6-12 month follow up, then at 18-24 months if no change. >8mm- 3, 9, 24 month follow up or consideration of PET/CT. In a high risk patient: <4mm- 12 month follow up, if unchanged then no further follow up. >4-6mm- 6-12 month follow up, then at 18-24 months if no change. >6-8mm- 3-6 month follow up, then at 9-12 months and 24 months if no change. >8mm- 3, 9, 24 month follow up or consideration of PET/CT. Electronically signed by: Moni Beltre MD (05/25/2020 4:30 PM) [facility]
[2020-05-25 18:05] VITALS: BP 142/83
== END 2020-05-25 18:15 | disposition home or self-care (01) ==
LOC: ER 12:43
DX: R91.1 Solitary pulmonary nodule (principal); M79.604 Pain in right leg; R20.2 Paresthesia of skin; J44.9 Chronic obstructive pulmonary disease, unspecified; E11.9 Type 2 diabetes mellitus without complications; I10 Essential (primary) hypertension; F17.200 Nicotine dependence, unspecified, uncomplicated; Z90.710 Acquired absence of both cervix and uterus; Z98.51 Tubal ligation status; Z98.890 Other specified postprocedural states
CPT/HCPCS: 36415; 71275; 80053; 81025; 82550; 83880; 84484; 85025; 93005; 93971; 99285; Q9967

== ENCOUNTER → 2020-09-25 | Outpatient (CLI) | payer MEDICAID, OTHER ==
[~2020-09-25] MED LIST changes: +DOXY-181 PO; -DOXY100C14 PO; -FLUT100D IH; +FLUT100D2 IH; +IOHEXOL 300 MG/ML 100ML VIAL. IV ONE
--- NOTE | 2020-09-25 17:50 | KCIC ---
CT NECK SOFT TISSUE WITH IV CONTRAST DATE: 09/25/2020 12:28 PM INDICATION: Lymphadenopathy Rt side. area of concern marked w/BB / History: TECHNIQUE: Axial computed tomography of the neck with intravenous contrast according to the standard neck protocol. 95 cc of Omnipaque 300 was administered intravenously. One or more of the following do se reduction techniques were utilized: Automated exposure control (AEC), Adjustment of mA and/or kV according to patient size, Use of iterative reconstruction technique such as ASiR, CT scan done accor ding to ALARA and image gently/image wisely COMPARISON: None. FINDINGS: At the area of concern indicated by the metallic marker, there are a couple of conspicuous cervical l ymph nodes measuring up to 8 mm short axis dimension. Symmetric enlargement of the palatine and lingual tonsils. The parotid, submandibular, and thyroid glands are normal. The muscles of the neck are normal. Vessel s of the neck demonstrate normal course, caliber, and enhancement. Torus palatinus. The visualized posterior fossa and brain is unremarkable. The visualized orbits and paranasal sinuses are normal. The cervical spine is normal. The visualized lung apices are clear. IMPRESSION: There are a few conspicuous right cervical lymph nodes which correspond to the area of interest indic ated by the metallic marker, nonspecific but possibly reactive. Continued clinical follow-up is recom mended to ensure resolution. No mass or fluid collection. Symmetric enlargement of the palatine and lingual tonsils, likely reactive. Electronically signed by: Dick Moura MD (09/25/2020 5:47 PM) [facility]
== END ==
LOC: KCIC CT 12:19
PROVIDERS: ATTEND Family Medicine
DX: R59.1 Generalized enlarged lymph nodes (principal)
CPT/HCPCS: 70491; 82565; Q9967